=== PATIENT | male | born 1980 | race Caucasian/White ===

== ENCOUNTER 2021-06-03 20:39 | Emergency (ER) | payer MEDICAID, SELFPAY ==
[2021-06-03 20:40] VITALS: BP 143/91; PULSE 107; RESP 20; TEMP 37; O2SAT 97; BMI 33.7
--- NOTE | 2021-06-03 20:51 | XR_ITS ---
PROCEDURE INFORMATION: Exam: XR Left Hand Exam date and time: 06/03/2021 8:51 PM Age: 40 years old Clinical indication: Injury or trauma; Other: Puncture wound to left hand caused by nail; Blunt trauma (contusions or hematomas); Patient HX: Puncture wound to left hand caused by a nail. ; Additional info: Nail went into hand TECHNIQUE: Imaging protocol: XR Left hand. Views: 3 or more views. COMPARISON: No relevant prior studies available. FINDINGS: Bones/joints: Normal. Soft tissues: There is soft tissue gas in the webspace between the 1st and 2nd digits. There is no radiopaque foreign body. IMPRESSION: There is soft tissue gas in the webspace between the 1st and 2nd digits. There is no radiopaque foreign body. No underlying acute bony abnormality.
--- NOTE | 2021-06-03 21:20 | HMH.EDUTC ---
[facility] [place] Disposition Clinical Impression: Need for Tdap vaccination Puncture wound of left hand Qualifiers: Encounter type: initial encounter Foreign body presence: without foreign body Qualified Code(s): S61.432A - Puncture wound without foreign body of left hand, initial encounter Disposition: Home, Self-Care Condition on Discharge: Good Instructions: DI for Puncture Wound, Cephalexin, Tetanus, Diphtheria, Pertussis (Tdap) Vaccine Additional Instructions: Keep the wound clean and dry. Keep a dressing on it if you are going to be getting it dirty. Watch the for signs of infection, such as redness, swelling, drainage, fever. etc. take tylenol or ibuprofen for pain. Follow up with your regular doctor. GO TO THE ER FOR ANY WORSENING SYMPTOMS OR CONCERNS. Prescriptions: Mupirocin [Bactroban 2% Ointment 22gm tube] 1 applicatio TP TID 7 Days #1 gm Transmission Status: Received by [id number] cephALEXin [cephALEXin 500mg capsule] 500 mg PO Q6H 10 Days #40 cap Transmission Status: Received by [id number] Referrals: Provider,Referral, [Primary Care Provider] - Time of Disposition: 21:29 Medical Decision Making - Medical Records Medical records reviewed: No: I reviewed the patient's medical records. - Carroll Inquiry Pt receiving controlled substance: No Vital Signs: 06/03/21 20:40 06/03/21 21:38 Temperature 98.6 F 98.6 F Temperature Source Oral Pulse Rate 107 H Pulse Rate [Left Brachial] 107 H Respiratory Rate 20 20 Blood Pressure 143/91 H Blood Pressure [Left Arm] 143/91 H Blood Pressure Mean [Left Arm] 108 Blood Pressure Source [Left Arm] Automatic Cuff Blood Pressure Position [Left Arm] Sitting 02 Sat by Pulse Oximetry 97 Oxygen Delivery Method Room Air - Lab Data Lab results reviewed: Yes: I reviewed the patient's lab results. Orders (Tests/Meds): ED MEDICATIONS Discontinued Medications Generic Name Dose Route Start Last Admin Trade Name Freq PRN Reason Stop Dose Admin Ceftriaxone Sodium 1 gm 06/03/21 21:20 06/03/21 21:30 Ceftriaxone 1gm Vial IM 06/03/21 21:21 1 gm ONCE ONE Administration Lidocaine HCl 0 ml 06/03/21 21:20 06/03/21 21:30 Lidocaine 1% 5ml Pf Vial IM 06/03/21 21:21 2.1 ml ONCE ONE Administration Tetanus/Reduced Diphtheria/Acell Pertussis 0.5 ml 06/03/21 20:56 06/03/21 21:00 Tet/Diphth/Pert-Adult 0.5ml Syringe IM 06/03/21 20:57 0.5 ml .ONCE ONE Administration - Radiology Data #1 Image(s): Hand Image Reviewed: Yes I reviewed the patient's radiology image, Yes I have reviewed radiologist's interpretation Preliminary Findings: Abnormal, No Fracture Seen PROCEDURE INFORMATION: Exam: XR Left Hand Exam date and time: 06/03/2021 8:51 PM Age: 40 years old Clinical indication: Injury or trauma; Other: Puncture wound to left hand caused by nail; Blunt trauma (contusions or hematomas); Patient HX: Puncture wound to left hand caused by a nail. ; Additional info: Nail went into hand TECHNIQUE: Imaging protocol: XR Left hand. Views: 3 or more views. COMPARISON: No relevant prior studies available. FINDINGS: Bones/joints: Normal. Soft tissues: There is soft tissue gas in the webspace between the 1st and 2nd digits. There is no radiopaque foreign body. IMPRESSION: There is soft tissue gas in the webspace between the 1st and 2nd digits. There is no radiopaque foreign body. No underlying acute bony abnormality. [facility] [place] HPI - General Stated complaint: AO 06/03 1300 nail went inton hand Time Seen by Provider: 06/03/21 21:00 Mode of Arrival: Ambulatory Source of Information: Patient Limitations: No Limitations Description of Symptoms (Recalled from Triage Doc. by RN): PATIENT STATES A NAIL ATTATCHED TO A BOARD WENT INTO HIS LEFT HAND (THUMB AREA) TODAY AT WORK. UNSURE OF WHEN LAST TDAP WAS. PUNCT
[2021-06-03 21:38] VITALS: BP 143/91; PULSE 107; RESP 20; TEMP 37; O2SAT 97
== END 2021-06-03 21:46 | disposition home or self-care (01) ==
PROVIDERS: Emergency Provider Nurse Practitioner Family
DX: S61.432A Puncture wound without foreign body of left hand, initial encounter (principal); Z23 Encounter for immunization; W22.8XXA Striking against or struck by other objects, initial encounter; Y92.89 Other specified places as the place of occurrence of the external cause
CPT/HCPCS: 73130; 90471; 90715; 96372; 99202; G0463

== ENCOUNTER → 2021-06-22 20:19 | Outpatient (CLI) | payer MEDICAID, SELFPAY | PROVIDERS: Visit Provider Nurse Practitioner Family | DX: Z20.822 Contact with and (suspected) exposure to COVID-19 (principal); J02.9 Acute pharyngitis, unspecified | CPT/HCPCS: C9803; U0003; U0005 ==

== ENCOUNTER 2021-08-25 18:35 | Emergency (ER) | payer MEDICAID, SELFPAY ==
[2021-08-25 19:35] VITALS: BP 140/87; PULSE 110; RESP 27; TEMP 37.1; O2SAT 98; BMI 36.6
--- NOTE | 2021-08-25 19:59 | CT_ITS ---
PROCEDURE INFORMATION: Exam: CT Abdomen And Pelvis With Contrast Exam date and time: 08/25/2021 7:59 PM Age: 41 years old Clinical indication: Abdominal tenderness and bloating; Prior surgery; Additional info: Abd pain, distention, 2x prev hernia repair TECHNIQUE: Imaging protocol: Computed tomography of the abdomen and pelvis with contrast. Radiation optimization: All CT scans at this facility use at least one of these dose optimization techniques: automated exposure control; mA and/or kV adjustment per patient size (includes targeted exams where dose is matched to clinical indication); or iterative reconstruction. Contrast material: ISOVUE; Contrast volume: 75 ml; Contrast route: IV; COMPARISON: No relevant prior studies available. FINDINGS: Liver: Normal. No mass. Gallbladder and bile ducts: Moderately distended gallbladder with potential subtle hypodense intraluminal stones. Pancreas: Normal enhancement. No ductal dilation. Spleen: No splenomegaly. Adrenal glands: No mass. Kidneys and ureters: Punctate nonobstructing renal calcifications. No hydronephrosis. Multiple renal hypodensities measuring up to 1.9 cm which are difficult to evaluate secondary to body habitus however may be cysts. Stomach and bowel: Moderately distended loops of small bowel within the mid abdomen measuring up to 2.6 cm in close proximity to the periumbilical hernia with distal tapering. Appendix: No evidence of appendicitis. Intraperitoneal space: No free air. No significant fluid collection. Vasculature: No abdominal aortic aneurysm. Lymph nodes: No enlarged lymph nodes. Urinary bladder: No acute abnormality. Reproductive: No acute abnormality. Bones/joints: No acute fracture. Soft tissues: 3.2 x 2.5 cm fat containing midline ventral hernia with fat stranding. 5.6 x 3.5 cm fat and bowel containing periumbilical hernia. IMPRESSION: 1. Moderately distended gallbladder with potential subtle hypodense intraluminal stones. 2. Punctate nonobstructing renal calcifications without hydronephrosis. 3. Multiple renal hypodensities measuring up to 1.9 cm which are difficult to evaluate secondary to body habitus however may be cysts. 4. 3.2 x 2.5 cm fat containing midline ventral hernia with fat stranding. 5. Moderately distended loops of small bowel within the mid abdomen measuring up to 2.6 cm in close proximity to a periumbilical hernia which contains nondilated bowel with distal tapering raising concern for at least partial obstruction.
[2021-08-25 20:16] LABS: Alanine Aminotransferase 32 U/L (12-78); Albumin Level 4.6 g/dl (3.5-5.0); Albumin/Globulin Ratio 1.9 (1.1-1.8); Alkaline Phosphatase 65 U/L (38-126); Amylase 47 U/L (30-110); Anion Gap 12.8 mEq/L (5-15); Aspartate Amino Transferase 39 U/L (17-59); Bilirubin,Total 0.4 mg/dl (0.2-1.3); Blood Urea Nitrogen 16 mg/dl (9-20); Calcium 9.3 mg/dl (8.4-10.2); Carbon Dioxide 27 mmol/L (22.0-30.0); Chloride 102 mmol/L (98-107); Creatinine Clearance Estimated 225 mL/min (50-200); Estimated Glomerular Filt Rate 93 ml/min (>60); GFR (African American) 113 ML/MIN (>60); Globulin 2.4 g/dL (1.3-3.2); Glucose 96 mg/dl (74-100); Potassium 3.8 mmoL/L (3.5-5.1); Sodium 138 mmol/L (136-145)
[2021-08-25 20:21] LABS: C-Reactive Protein 9.6 mg/L (0-4)
[2021-08-25 20:25] LABS: Basophils # 0.1 K/mm3 (0-0.2); Basophils % 0.9 % (0.1-2.0); Eosinophils # 0.3 K/mm3 (0.0-0.4); Eosinophils % 2.1 % (0.1-12.0); Hematocrit 46.8 % (42.0-52.0); Hemoglobin 15.3 g/dL (14.1-18.0); Lymphocytes # 2.9 K/mm3 (0.7-4.5); Lymphocytes % 20.1 % (10-50); Mean Corpuscular HGB Conc 32.7 g/dL (31.8-35.4); Mean Corpuscular Volume 91.7 fl (80-94); Mean Platelet Volume 9.4 fl (7.4-10.4); Monocytes # 0.9 K/mm3 (0.1-1.0); Monocytes % 5.9 % (1.7-9.3); Neutrophils # 10.3 K/mm3 (1.8-7.8); Platelet Count 228 K/mm3 (142-424); White Blood Count 14.5 K/mm3 (4.8-10.8)
[2021-08-25 20:35] LABS: Procalcitonin 0.077 ng/mL (0.0-2.0)
[2021-08-25 20:56] LABS: Lipase 56 U/L (23-300)
[2021-08-25 21:15] LABS: Erythrocyte Sedimentation Rate 8 mm/hr (0-15)
[2021-08-25 21:42] LABS: Coronavirus 19, PCR Not Detected (NotDetected); Influenza A, PCR Not Detected (NotDetected); Influenza B, PCR Not Detected (NotDetected)
--- NOTE | 2021-08-25 21:46 | HMH.EDNVD ---
ED Disposition Clinical Impression: Ventral hernia without obstruction or gangrene Abdominal pain Qualifiers: Abdominal location: periumbilical Qualified Code(s): R10.33 - Periumbilical pain Disposition: Left Against Medical Advice Condition on Discharge: Good Instructions: DI for Acute Abdominal Pain Additional Instructions: see surg and pcp for follow up Referrals: Provider,Ilana, [Primary Care Provider] - Mohan Eli MD [Staff Physician] - - Critical Care Critical Care Time: No Attestation: On 08/25/21, the high probability of a clinically significant, sudden or life threatening deterioration of the following system(s) required my full and direct attention, intervention and personal management. The time I documented below is in addition to time spent performing reported procedures but includes the following listed in this critical care notation. Medical Decision Making - Medical Records Medical records reviewed: Yes: I reviewed the patient's medical records. - Carroll Inquiry Pt receiving controlled substance: No Vital Signs: 08/25/21 19:35 Temperature 98.8 F Temperature Source Oral Pulse Rate [Right] 110 H Respiratory Rate 27 H Blood Pressure [Right Arm] 140/87 Blood Pressure Mean [Right Arm] 104 02 Sat by Pulse Oximetry 98 Oxygen Delivery Method Room Air - Lab Data Lab results reviewed: Yes: I reviewed the patient's lab results. Lab Results 08/25/21 19:45: ESR 8 08/25/21 19:45: C-Reactive Protein 9.6 H, Procalcitonin 0.077 08/25/21 19:45: WBC 14.5 H, RBC 5.10, Hgb 15.3, Hct 46.8, MCV 91.7, MCH 30.0, MCHC 32.7, RDW 14.0, Plt Count 228, MPV 9.4, Neut % (Auto) 71.0, Lymph % (Auto) 20.1, [place] % (Auto) 5.9, Eos % (Auto) 2.1, Baso % (Auto) 0.9, Neut # (Auto) 10.3 H, Lymph # (Auto) 2.9, [place] # (Auto) 0.9, Eos # (Auto) 0.3, Baso # (Auto) 0.1 08/25/21 19:45: Sodium 138, Potassium 3.8, Chloride 102, Carbon Dioxide 27, Anion Gap 12.8, BUN 16, Creatinine 0.90, Estimated Creat Clear 225, Estimated GFR 93, Est GFR ( Amer) 113, Glucose 96, Calcium 9.3, Total Bilirubin 0.4, AST 39, ALT 32, Alkaline Phosphatase 65, Total Protein 7.0, Albumin 4.6, Globulin 2.4, Albumin/Globulin Ratio 1.9 H, Amylase 47 08/25/21 19:45: Lipase 56 Result diagrams: 08/25/21 19:45 08/25/21 19:45 Orders (Tests/Meds): ED MEDICATIONS Generic Name Dose Route Start Last Admin Trade Name Freq PRN Reason Stop Dose Admin Sodium Chloride 1,000 mls @ 999 mls/hr 08/25/21 20:00 08/25/21 20:13 Sod Chlor 0.9% 1000ml Bag IV 08/25/21 21:00 999 mls/hr .Q1H1M ISELA Administration Discontinued Medications Generic Name Dose Route Start Last Admin Trade Name Freq PRN Reason Stop Dose Admin Hydromorphone HCl 1 mg 08/25/21 21:33 08/25/21 21:44 Hydromorphone 2mg/Ml Syringe IV 08/25/21 21:34 1 mg ONCE ONE Administration Iopamidol 75 ml 08/25/21 20:46 08/25/21 20:47 Iopamidol-370 (76%);100ml Bottle IV 08/25/21 20:47 75 ml ONCE ONE Administration Morphine Sulfate 4 mg 08/25/21 19:59 08/25/21 20:12 Morphine 4mg/Ml Syringe IV 08/25/21 20:00 4 mg ONCE ONE Administration Ondansetron HCl 4 mg 08/25/21 19:59 08/25/21 20:12 Ondansetron 4mg/2ml Vial IV 08/25/21 20:00 4 mg ONCE ONE Administration Promethazine HCl 25 mg 08/25/21 21:33 08/25/21 21:44 Promethazine Hcl 25mg/Ml 1ml Vial IV 08/25/21 21:34 25 mg ONCE ONE Administration Sodium Chloride 10 ml 08/25/21 20:46 08/25/21 20:47 Sodium Chloride 0.9% 10ml Syr (Rad Only) IV 08/25/21 20:47 10 ml ONCE ONE Administration Sodium Chloride 25 ml 08/25/21 21:33 08/25/21 21:44 Sodium Chloride 0.9% 25ml Bag IV 08/25/21 21:34 25 ml ONCE ONE Administration ORDERS Category Date Time Status Rapid PCR Covid and Flu A/B Stat Lab 08/25/21 21:35 Received UA [Urinalysis and Microscopic] Stat Lab 08/25/21 20:02 Ordered - CT Data CT Scan: Abdomen, Pelvis Time Received: 22:[address] Reviewed: Yuliya
--- NOTE | 2021-08-25 21:48 | PC.NURSE ---
Dr. Ontiveros s/w Dr. Eli
[2021-08-25 22:09] VITALS: BP 115/75; PULSE 92; RESP 16; TEMP 36.6; O2SAT 98
== END 2021-08-25 22:16 | disposition left against medical advice (07) ==
PROVIDERS: Emergency Provider Emergency Medicine
DX: K43.6 Other and unspecified ventral hernia with obstruction, without gangrene (principal); F17.210 Nicotine dependence, cigarettes, uncomplicated
CPT/HCPCS: 74177; 80053; 82150; 83690; 84145; 85025; 85651; 86140; 96365; 96375; 99283; C9803; J2405; Q9967; U0003; U0005

== ENCOUNTER 2021-09-03 10:36 | Emergency (ER) | payer MEDICAID, SELFPAY ==
[2021-09-03 11:40] VITALS: BP 131/90; PULSE 115; RESP 28; TEMP 36.7; O2SAT 98; BMI 36.0
[2021-09-03 12:00] LABS: UTC Influenza A Antigen Negative (Negative)
--- NOTE | 2021-09-03 12:00 | HMH.EDUTC ---
[facility] Disposition Clinical Impression: Sinusitis Qualifiers: Sinusitis location: unspecified location Chronicity: unspecified Qualified Code(s): J32.9 - Chronic sinusitis, unspecified Disposition: Home, Self-Care Condition on Discharge: Good Additional Instructions: *Monitor Temp, Over the counter Motrin or Tylenol as directed/as needed Tylenol every 4 hours and Motrin every 6 hours (as long as your family doctor has told you that you can take it) for fever or pain. and straight to ER if unable to lower temp less than 101.0 after medication given *Warm salt water gargles may help to soothe the throat *Throat Lozenges *Warm fluids like tea with honey may help to soothe the throat *Sleep elevated *Humidifier/Vaporizer *Flonase 2 sprays in each nostril daily but be aware that it may take 2-3 days before you notice improvement *Bromfed may cause drowsiness. Know how it effects you (your child) before driving, caring for small child, or sending your child to school. Not other antihistamines/allergy medications while taking bromfed Your throat swab was sent for culture. Those results are typically sent to your primary care. Be sure to follow up in 2-3 days with your family doctor/primary care physician if no improvement so they can review those result and treat if necessary. If you don?t have a primary care doctor, I recommend you get one but in the mean time, you will have to return to a walk in clinic Follow up IMMEDIATELY for new or worsening symptoms or no Noticeable improvement over the next 48-72 hours. 911 for difficulty breathing or swallowing You were tested for today for COVID19 your test result should be back in the next 48-72 hours, you may check your results on the [facility] My health portal If you are positive someone from the Hospital will be calling you Make sure to drink plenty of water and gatoraid and take vitamin C, D and zinc Prescriptions: Doxycycline Monohydrate [Doxycycline [place] 100mg Tab] 100 mg PO BID 10 Days #20 tab Transmission Status: Received by [email or web address] #[id number] methylPREDNISolone [Medrol 4mg tab] 4 mg PO DIRECTED #21 tab Transmission Status: Received by [email or web address] #[id number] Promethazine/Dextromethorphan [Promethazine-Dm Syrup] 2.5 - 5 ml PO Q6H PRN #120 ml PRN Reason: Cough Transmission Status: Received by [email or web address] #[id number] Referrals: Provider,Referral, [Primary Care Provider] - Forms: Work/School Release Time of Disposition: 12:25 Medical Decision Making - Carroll Inquiry Pt receiving controlled substance: No Carroll was queried for this patient: No Vital Signs: 09/03/21 11:40 09/03/21 12:08 Temperature 98.1 F 98.1 F Temperature Source Oral Pulse Rate 115 H Pulse Rate [Left Brachial] 115 H Respiratory Rate 28 H 24 Blood Pressure 131/90 Blood Pressure [Left Arm] 131/90 Blood Pressure Mean [Left Arm] 103 Blood Pressure Source [Left Arm] Automatic Cuff Blood Pressure Position [Left Arm] Sitting 02 Sat by Pulse Oximetry 98 Oxygen Delivery Method Room Air - Lab Data Lab results reviewed: Yes: I reviewed the patient's lab results. Lab Results 09/03/21 12:00: Influenza Type A Ag Negative, Influenza Type B Ag Negative [facility] HPI - General Stated complaint: cold sweats, head congestion Time Seen by Provider: 09/03/21 12:00 Mode of Arrival: Ambulatory Source of Information: Patient Limitations: No Limitations Description of Symptoms (Recalled from Triage Doc. by RN): PATIENT C/O HEAD AND CHEST CONGESTION, CHILLS, SWEATS, SORE THROAT, SINUS PRESSURE, SOA (D/T NASAL CONGESTION), FATIGUE AND BODY ACHES SINCE TUESDAY HEENT Symptoms (Recalled from RN notes): Yes Resp Symptoms (Recalled from RN notes): No Skin Symptoms (Recalled from RN notes): No MS Symptoms (Recalled from RN notes): No Functional Status (Recalled from RN notes): WNL - History of Present Illness Provider Complaint: Patient states that he hasnt felt well since
[2021-09-03 12:01] LABS: UTC Influenza B Antigen Negative (Negative)
[2021-09-03 12:08] VITALS: BP 131/90; PULSE 115; RESP 24; TEMP 36.7; O2SAT 98
== END 2021-09-03 12:36 | disposition home or self-care (01) ==
PROVIDERS: Emergency Provider Nurse Practitioner
DX: J32.9 Chronic sinusitis, unspecified (principal); F17.210 Nicotine dependence, cigarettes, uncomplicated; E11.9 Type 2 diabetes mellitus without complications; Z20.822 Contact with and (suspected) exposure to COVID-19
CPT/HCPCS: 81003; 87804; 99202; C9803; G0463; U0003; U0005

== ENCOUNTER 2021-09-25 17:46 | Emergency (ER) | payer MEDICAID, SELFPAY ==
[2021-09-25 17:50] VITALS: BP 150/94; PULSE 84; RESP 22; TEMP 36.7; O2SAT 97; BMI 35.4
[2021-09-25 18:16] LABS: UTC Influenza A Antigen Negative (Negative); UTC Influenza B Antigen Negative (Negative); UTC Strep Screen (Rapid) Negative (Negative)
--- NOTE | 2021-09-25 18:18 | HMH.EDUTC ---
[facility] [place] Disposition Clinical Impression: URI (upper respiratory infection) Qualifiers: URI type: unspecified URI Qualified Code(s): J06.9 - Acute upper respiratory infection, unspecified Disposition: Home, Self-Care Condition on Discharge: Good Instructions: Sore Throat, Cough, DI for Sinusitis Additional Instructions: ? Start antibiotic today. Be sure to complete entire prescription even if feeling better ? Monitor temp. Tylenol every 4 hours as needed and / or ibuprofen every 6 hours as needed ( As long as your primary care physician has told you that it ok to take both. For fever/aches/pains ER if no less than 101 despite Tylenol or Motrin ? Humidifier/vaporizer or hot steamy shower ? Inhaler every 4-6 hours as needed like we discussed. If unsure how to use it, ask pharmacist to demonstrate how. Should help open airways and improve cough, wheezing, and shortness of breath ? Mucinex for your congestion. Be sure to drink lots of water. *Start steroid today. Helps with inflammation therefore, cough and wheezing. Follow directions on the package. Reviewed side effects. Patient reports taking them before. Follow up IMMEDIATELY for new or worsening of symptoms OR no noticeable improvement over the next 48-72 hours. 911 immediately for any life threatening symptoms such as chest pain or difficulty breathing Prescriptions: guaiFENesin [Mucinex 600mg tablet] 600 mg PO Q12HP PRN #20 tab PRN Reason: Congestion Transmission Status: Received by [facility] # methylPREDNISolone [Medrol 4mg tab] 4 mg PO DIRECTED #21 tab Transmission Status: Received by [facility] # Azithromycin [Z-Alan 250mg Tab] 250 mg PO DIRECTED #6 tab Transmission Status: Received by [facility] # Referrals: Provider,Referral, [Primary Care Provider] - As needed Forms: Work/School Release Time of Disposition: 18:26 Medical Decision Making - Carroll Inquiry Pt receiving controlled substance: No Carroll was queried for this patient: No Vital Signs: 09/25/21 17:50 Temperature 98.1 F Temperature Source Oral Pulse Rate [Left Brachial] 84 Respiratory Rate 22 Blood Pressure [Left Arm] 150/94 H Blood Pressure Mean [Left Arm] 112 Blood Pressure Source [Left Arm] Automatic Cuff Blood Pressure Position [Left Arm] Sitting 02 Sat by Pulse Oximetry 97 Oxygen Delivery Method Room Air - Lab Data Lab results reviewed: Yes: I reviewed the patient's lab results. Lab Results 09/25/21 18:04: Influenza Type A Ag Negative, Influenza Type B Ag Negative 09/25/21 18:04: Strep Scn Rapid Clinic Negative Orders (Tests/Meds): ORDERS Category Date Time Status Covid-19 Nasal PCR ([facility]) Routine Lab 09/25/21 17:58 Received Strep Screen Confirmation Stat Micro 09/25/21 18:04 Received [facility] UTC HPI - General Stated complaint: sore throat Time Seen by Provider: 09/25/21 18:20 Mode of Arrival: Ambulatory Source of Information: Patient Limitations: No Limitations Description of Symptoms (Recalled from Triage Doc. by RN): PATIENT C/O SORE THROAT, CONGESTION, EAR PAIN, COUGH AND BODY ACHES SINCE YESTERDAY HEENT Symptoms (Recalled from RN notes): Yes Resp Symptoms (Recalled from RN notes): Yes Skin Symptoms (Recalled from RN notes): No MS Symptoms (Recalled from RN notes): No Functional Status (Recalled from RN notes): WNL - History of Present Illness Provider Complaint: Patient states that he started feeling bad yesterday State that he has been having sore throat, sinus pain and pressure, cough and chest congestion along with body aches and chills State that today he was feeling worse so he came in to get checked out - Related Data Previous Rx's Medication Instructions Recorded Azithromycin [Z-Alan 250mg Tab] 250 mg PO DIRECTED #6 tab 09/25/21 guaiFENesin [Mucinex 600mg tablet] 600 mg PO Q12HP PRN #20 tab 09/25/21 methylPREDNISolone [Medrol 4mg 4 mg PO DIRECTED #21 tab 09/25/21 tab] Aller
[2021-09-25 18:29] VITALS: BP 150/94; PULSE 84; RESP 22; TEMP 36.7; O2SAT 97
== END 2021-09-25 18:34 | disposition home or self-care (01) ==
PROVIDERS: Emergency Provider Nurse Practitioner
DX: J06.9 Acute upper respiratory infection, unspecified (principal); J02.9 Acute pharyngitis, unspecified; E11.9 Type 2 diabetes mellitus without complications; Z20.822 Contact with and (suspected) exposure to COVID-19
CPT/HCPCS: 87804; 87880; 99203; C9803; G0463; U0003; U0005

== ENCOUNTER 2021-10-05 10:58 | Emergency (ER) | payer MEDICAID, SELFPAY ==
--- NOTE | 2021-10-05 11:34 | XR_ITS ---
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 The bony alignment is normal. There is yixy-ov-rvoiyifm degenerative change. There is no evidence of joint effusion. No localized soft tissue abnormality is seen. IMPRESSION: Mild to moderate degenerative change. No acute osseous abnormality. Reviewed, Interpreted and Dictated by Mohan Alvarez III, MD Transcribed by DAYANARA Maria Authenticated by Mohan Alvarez III, MD on 10/05/2021 12:48:[address] [facility]
[2021-10-05 11:52] VITALS: BP 145/87; PULSE 109; RESP 20; TEMP 36.9; O2SAT 98; BMI 35.4
--- NOTE | 2021-10-05 12:13 | HMH.EDUTC ---
[facility] [place] Disposition Clinical Impression: Knee sprain Qualifiers: Encounter type: initial encounter Involved ligament of knee: unspecified ligament Laterality: left Qualified Code(s): S83.92XA - Sprain of unspecified site of left knee, initial encounter Disposition: Home, Self-Care Condition on Discharge: Good Instructions: Knee Sprain, How to Use an Elastic Bandage-Knee Sprain, DI for Knee Sprain, How To Perform RICE (Rest, Ice, Compress, Elevate) Additional Instructions: *weight bearing as tolerated *RICE, Rest the extremity, Ice 15-20 minutes 3-4 times daily, Compress- wear the nba wrap as discussed as much as possible to help reduce swelling and pain, Elevate the extremity when at rest *Nba wrap is for support and help control swelling, use it except in the shower. Be sure that is not to tight but not to loose either *Elevate when resting *Etodolac every 8 hours as needed for pain an inflammation. If need something more can take Tylenol in between doses of Etodolac to help Do not take any Ibuprofen with Etodolac Immediately follow up with your family doctor for new or worsening of symptoms, or no noticeable improvement over the next 3-5 days Return if needed Straight to ER if any life threatening symptoms Prescriptions: Etodolac 200 mg PO Q8HP PRN #20 cap PRN Reason: Moderate Pain Transmission Status: Received by [facility] #[id number] Referrals: Provider,Referral, [Primary Care Provider] - As needed Ahsan Hoskins MD [Staff Physician] - As needed Forms: Work/School Release Time of Disposition: 13:04 Medical Decision Making - Carroll Inquiry Pt receiving controlled substance: No Carroll was queried for this patient: No Vital Signs: 10/05/21 11:52 10/05/21 13:09 Temperature 98.4 F 98.4 F Temperature Source Oral Oral Pulse Rate 109 H Pulse Rate [Right Radial] 109 H Respiratory Rate 20 20 Blood Pressure 145/87 H Blood Pressure [Right Arm] 145/87 H Blood Pressure Mean [Right Arm] 106 Blood Pressure Source Automatic Cuff Blood Pressure Source [Right Arm] Automatic Cuff Blood Pressure Position Sitting Blood Pressure Position [Right Arm] Sitting 02 Sat by Pulse Oximetry 98 Oxygen Delivery Method Room Air Room Air Orders (Tests/Meds): ED MEDICATIONS Discontinued Medications Generic Name Dose Route Start Last Admin Trade Name Freq PRN Reason Stop Dose Admin Ketorolac Tromethamine 60 mg 10/05/21 12:22 10/05/21 12:40 Ketorolac 60mg/2ml Vial IM 10/05/21 12:23 60 mg ONCE ONE Administration - Radiology Data #1 Image(s): Knee Image Reviewed: Yes I have reviewed radiologist's interpretation IMPRESSION: Mild to moderate degenerative change. No acute osseous abnormality. [facility] [place] HPI - General Stated complaint: WC 10/02 lt knee pain Time Seen by Provider: 10/05/21 12:13 Mode of Arrival: Ambulatory Source of Information: Patient Limitations: No Limitations Description of Symptoms (Recalled from Triage Doc. by RN): Pt stated that last wk he was at work and is left knee got stuck between two structures and it twisted. He states that his pain is going from his knee and radiating from knee to his foot, and knee to his upper leg. He stated that it was swollen, and has since went down. It hurts to bare weight. HEENT Symptoms (Recalled from RN notes): No Resp Symptoms (Recalled from RN notes): No Skin Symptoms (Recalled from RN notes): No MS Symptoms (Recalled from RN notes): Yes (hurt left knee) Functional Status (Recalled from RN notes): n/a - History of Present Illness Provider Complaint: Jodinet states that he was at work on when his left knee got caught between cart and rack and twisted his knee States that ever since he has been having pain in his left knee when he walks or puts weight on it States that over the weekend he had some swelling and has been taking motrin and tylenol but not helped much States that today he was still hurting so he came in to ge
[2021-10-05 13:09] VITALS: BP 145/87; PULSE 109; RESP 20; TEMP 36.9; O2SAT 98
--- NOTE | 2021-10-05 15:35 | PC.NURSE ---
Called in naproxen 500 BID qty 20
== END 2021-10-05 13:09 | disposition home or self-care (01) ==
PROVIDERS: Emergency Provider Nurse Practitioner
DX: S83.92XA Sprain of unspecified site of left knee, initial encounter (principal); X50.1XXA Overexertion from prolonged static or awkward postures, initial encounter; Y92.69 Other specified industrial and construction area as the place of occurrence of the external cause; Y99.0 Civilian activity done for income or pay
CPT/HCPCS: 73562; 96372; 99213; G0463

== ENCOUNTER 2021-10-28 21:24 | Inpatient (IN) | payer MEDICAID, SELFPAY ==
[2021-10-28 21:25] VITALS: BP 135/91; PULSE 102; RESP 18; TEMP 37.2; O2SAT 96; BMI 36.0
--- NOTE | 2021-10-28 21:51 | HMH.EDGENADL ---
ED Disposition Clinical Impression: Periumbilical hernia, Small bowel obstruction Disposition: Admitted As Inpatient Condition on Discharge: Serious Referrals: Provider,Referral, [Primary Care Provider] - Time of Disposition: 00:00 - Critical Care Critical Care Time: No Attestation: On 10/28/21, the high probability of a clinically significant, sudden or life threatening deterioration of the following system(s) required my full and direct attention, intervention and personal management. The time I documented below is in addition to time spent performing reported procedures but includes the following listed in this critical care notation. Medical Decision Making - Medical Records Medical records reviewed: Yes: I reviewed the patient's medical records. - [place] Inquiry Pt receiving controlled substance: No Vital Signs: 10/28/21 21:25 Temperature 99.0 F Temperature Source Oral Pulse Rate [Right Radial] 102 H Respiratory Rate 18 Blood Pressure [Right Arm] 135/91 H Blood Pressure Mean [Right Arm] 105 Blood Pressure Source [Right Arm] Automatic Cuff Blood Pressure Position [Right Arm] Sitting 02 Sat by Pulse Oximetry 96 Oxygen Delivery Method Room Air - Lab Data Lab Results 10/28/21 21:45: Urine Color Dark yellow, Urine Appearance Clear, Urine pH 6.0, Ur Specific [place] 1.025, Urine Protein Trace, Urine Glucose (UA) Negative, Urine Ketones Negative, Urine Blood Negative, Urine Nitrate Negative, Urine Bilirubin Negative, Urine Urobilinogen 2.0, Ur Leukocyte Esterase 1+ A, Urine WBC 5-10, Urine Bacteria 1+, Urine Mucus 1+ 10/28/21 22:11: WBC 9.8, RBC 5.26, Hgb 16.1, Hct 47.5, MCV 90.3, MCH 30.6, MCHC 33.9, RDW 14.2, Plt Count 257, MPV 8.5, Neut % (Auto) 62.7, Lymph % (Auto) 25.5, [place] % (Auto) 6.8, Eos % (Auto) 3.7, Baso % (Auto) 1.3, Neut # (Auto) 6.1, Lymph # (Auto) 2.5, [place] # (Auto) 0.7, Eos # (Auto) 0.4, Baso # (Auto) 0.1 10/28/21 22:11: Sodium 139, Potassium 3.8, Chloride 102, Carbon Dioxide 30, Anion Gap 10.8, BUN 14, Creatinine 1.00, Estimated Creat Clear 200, Estimated GFR 82, Est GFR ( Amer) 100, Glucose 102 H, Calcium 8.4, Total Bilirubin 0.7, AST 63 H, ALT 91 H, Alkaline Phosphatase 59, Total Protein 6.8, Albumin 4.2, Globulin 2.6, Albumin/Globulin Ratio 1.6, Lipase 40 10/28/21 22:11: Lactate 1.1 Result diagrams: 10/28/21 22:11 10/28/21 22:11 Orders (Tests/Meds): ED MEDICATIONS Discontinued Medications Generic Name Dose Route Start Last Admin Trade Name Freq PRN Reason Stop Dose Admin Iopamidol 75 ml 10/28/21 22:17 10/28/21 22:17 Iopamidol-370 (76%);100ml Bottle IV 10/28/21 22:18 75 ml ONCE ONE Administration Morphine Sulfate 4 mg 10/28/21 21:57 10/28/21 22:12 Morphine 4mg/Ml Syringe IV 10/28/21 21:58 4 mg ONCE ONE Administration Ondansetron HCl 4 mg 10/28/21 21:57 10/28/21 22:12 Ondansetron 4mg/2ml Vial IV 10/28/21 21:58 4 mg ONCE ONE Administration Sodium Chloride 10 ml 10/28/21 22:17 10/28/21 22:17 Sodium Chloride 0.9% 10ml Syr (Rad Only) IV 10/28/21 22:18 10 ml ONCE ONE Administration ORDERS Category Date Time Status Rapid PCR Covid and Flu A/B Stat Lab 10/28/21 23:55 Ordered Urine Culture Stat Micro 10/28/21 21:45 Received - CT Data CT Scan: Abdomen Time Received: 23:[address] Reviewed: Yes: I have reviewed the patient's CT results, I have viewed the radiologist's interpretation Preliminary Findings: Abnormal Findings Narrative: IMPRESSION: 1. Umbilical hernia containing herniated loop of small -- bowel, with bowel dilatation and transition point at the hernia concerning for small bowel obstruction. 2. There is a 10 cm segment of small bowel just proximal to the hernia which demonstrates moderate bowel wall thickening and adjacent mesenteric stranding. This might represent reactive changes from obstruction or possibly enteritis, however cannot exclude vascular strangulation and ischemic parviz
--- NOTE | 2021-10-28 21:57 | CT_ITS ---
PROCEDURE INFORMATION: Exam: CT Abdomen And Pelvis With Contrast Exam date and time: 10/28/2021 10:10 PM Age: 41 years old Clinical indication: Pain and condition or disease; Hernia; Abdominal pain; Additional info: Abdominal pain, hernias TECHNIQUE: Imaging protocol: Computed tomography of the abdomen and pelvis with contrast. Total images: 391 Radiation optimization: All CT scans at this facility use at least one of these dose optimization techniques: automated exposure control; mA and/or kV adjustment per patient size (includes targeted exams where dose is matched to clinical indication); or iterative reconstruction. Contrast material: ISOVUE; Contrast volume: 75 ml; Contrast route: IV; COMPARISON: CT ABDOMEN PELVIS W CON 08/25/2021 8:49 PM FINDINGS: Tubes, catheters and devices: Loop recorder noted in the anterior subcutaneous fat in the left lower chest. Lungs: Mild atelectasis in the lung bases. Heart: Heart size normal. Mediastinal space: The visualized distal esophagus is largely contracted without gross abnormality. Liver: Moderate fatty infiltration of the liver. Hepatomegaly measuring 23 cm craniocaudal. Normal contour. No mass lesions. No intrahepatic biliary ductal dilatation. Gallbladder and bile ducts: Normal. No calcified stones. No ductal dilation. Pancreas: Normal. No inflammatory changes or ductal dilation. Spleen: Splenomegaly measuring 15 cm maximum dimension. Adrenal glands: Normal. No adrenal mass. Kidneys and ureters: 2.1 cm rounded indeterminate lesion in the anterior mid pole cortex of the right kidney measuring 34 Hounsfield units. There are few simple cysts in the left kidney which do not require further assessment. There is an indeterminate 13 mm lesion in the medial upper pole cortex of the left kidney measuring 31 Hounsfield units. Body habitus may be contributing to altered density values. Nonemergent assessment with multiphasic pre and postcontrast MR of the kidneys recommended. 1.5 mm nonobstructive right renal stone. 4 mm nonobstructive left renal stone. No ureteral stones are identified. Stomach and bowel: The stomach is largely contracted without gross abnormality. Mild diverticulosis involving the distal colon without evidence of acute diverticulitis. Appendix: Prior appendectomy. Intraperitoneal space: No free fluid or air. Vasculature: Mild atherosclerotic aortoiliac calcification without aneurysm. Lymph nodes: No adenopathy. Urinary bladder: Unremarkable as visualized. Calcification at the base of the bladder is felt to be related to prostate calcification, unchanged. Reproductive: Mild prostate enlargement with moderate prostate calcification. Bones/joints: No acute osseous abnormalities. Chronic mild superior endplate compression deformity T8 unchanged. Soft tissues: Dilated small bowel loops in the mid and lower abdomen measuring up to 5.1 cm diameter, transitioning to nondilated small bowel at the level of the patient's periumbilical hernia which contains herniated loop of small bowel. This is consistent with small bowel obstruction. There is moderate bowel wall thickening and adjacent stranding involving the segment just proximal to the hernia which might represent reactive thickening or enteritis, although cannot exclude changes of strangulation. Multifocal anterior midline supraumbilical fatty hernias are again noted with chronic local fatty stranding but no bowel herniation with the majority. The largest in the periumbilical region does have a herniated loop of small bowel as described above. IMPRESSION: 1. Umbilical hernia containing herniated loop of small bowel, with bowel
[2021-10-28 22:00] VITALS: BP 128/80; PULSE 98; O2SAT 95
[2021-10-28 22:19] LABS: Microscopic, Urine URINE MICROSCOPIC (MICROSCOPIC)
[2021-10-28 22:22] LABS: Basophils # 0.1 K/mm3 (0-0.2); Basophils % 1.3 % (0.1-2.0); Eosinophils # 0.4 K/mm3 (0.0-0.4); Eosinophils % 3.7 % (0.1-12.0); Hematocrit 47.5 % (42.0-52.0); Hemoglobin 16.1 g/dL (14.1-18.0); Lymphocytes # 2.5 K/mm3 (0.7-4.5); Lymphocytes % 25.5 % (10-50); Mean Corpuscular HGB Conc 33.9 g/dL (31.8-35.4); Mean Corpuscular Hemoglobin 30.6 pg (27.0-31.2); Mean Corpuscular Volume 90.3 fl (80-94); Mean Platelet Volume 8.5 fl (7.4-10.4); Monocytes # 0.7 K/mm3 (0.1-1.0); Monocytes % 6.8 % (1.7-9.3); Neutrophils # 6.1 K/mm3 (1.8-7.8); Neutrophils % 62.7 % (37.0-80.0); Platelet Count 257 K/mm3 (142-424); Red Blood Count 5.26 M/mm3 (4.60-6.20); Red Cell Distribution Width 14.2 % (11.5-17.5); White Blood Count 9.8 K/mm3 (4.8-10.8)
[2021-10-28 22:27] LABS: Appearance,Urine CLEAR (Clear); Bilirubin,Urine Negative (Negative); Blood, Urine Negative (Negative); Glucose,Urine (UA) Negative (Negative); Ketones,Urine Negative (Negative); Leukocyte Esterase,Urine 1+ (Negative); Nitrate,Urine Negative (Negative); Protein,Urine TRACE (Negative); Specific Gravity, Urine 1.025 (1.005-1.030)
[2021-10-28 22:28] LABS: Color,Urine Dark Yellow (Yellow)
[2021-10-28 22:40] LABS: Bacteria,Urine 1+ /lpf; Mucus,Urine 1+ /lpf
[2021-10-28 23:00] VITALS: BP 137/86; PULSE 98; O2SAT 94
[2021-10-28 23:17] LABS: Lactic Acid 1.1 mmol/L (0.7-2.1)
[2021-10-28 23:18] LABS: Alanine Aminotransferase 91 U/L (12-78); Albumin Level 4.2 g/dl (3.5-5.0); Albumin/Globulin Ratio 1.6 (1.1-1.8); Alkaline Phosphatase 59 U/L (38-126); Anion Gap 10.8 mEq/L (5-15); Aspartate Amino Transferase 63 U/L (17-59); Bilirubin,Total 0.7 mg/dl (0.2-1.3); Blood Urea Nitrogen 14 mg/dl (9-20); Calcium 8.4 mg/dl (8.4-10.2); Carbon Dioxide 30 mmol/L (22.0-30.0); Chloride 102 mmol/L (98-107); Creatinine Clearance Estimated 200 mL/min (50-200); Estimated Glomerular Filt Rate 82 ml/min (>60); GFR (African American) 100 ML/MIN (>60); Globulin 2.6 g/dL (1.3-3.2); Glucose 102 mg/dl (74-100); Lipase 40 U/L (23-300); Potassium 3.8 mmoL/L (3.5-5.1); Sodium 139 mmol/L (136-145); Total Protein,Serum 6.8 g/dl (6.3-8.2)
--- NOTE | 2021-10-28 23:49 | PC.NURSE ---
speaking with ROSANNE at this time.
--- NOTE | 2021-10-28 23:50 | PC.NURSE ---
MD speaking with expedition supervisor surgeon at this time.
--- NOTE | 2021-10-28 23:55 | PC.NURSE ---
Jenaro notified that Dr. Hernandez will be taking pt to OR, call OR team
[2021-10-29] VITALS (24 sets, daily range): BP systolic 104–141; BP diastolic 67–87; PULSE 72–104; RESP 13–20; TEMP 36.3–43; O2SAT 90–96; BMI 35.9
--- NOTE | 2021-10-29 00:02 | PC.NURSE ---
pt placed in a gown and Surgery packet being prepared
[2021-10-29 00:06] LABS: Coronavirus 19, PCR Not Detected (NotDetected); Influenza A, PCR Not Detected (NotDetected); Influenza B, PCR Not Detected (NotDetected)
--- NOTE | 2021-10-29 00:20 | PC.NURSE ---
at bedside talking to pt about sx.
--- NOTE | 2021-10-29 00:32 | HMH.GSHP ---
HPI HPI: This is a 41-year-old gentleman who presented to the emergency department with increasing abdominal pain. My physical exam findings and radiographic evidence consistent with incarcerated ventral hernia and the surgical service was consulted for evaluation and management. Referring emergency department evaluation: 41-year-old male presenting urgency department abdominal pain. Pain started 4 days ago. Is described as constant and cramping. Located across the lower abdomen. Starts at the umbilicus and extends to the lower portion of the abdomen, near the hip bone. Has been constant since onset. Associated nausea and vomiting. Unable to eat and drink. Had a small bowel movement yesterday. Usually has at least 2 bowel movements daily. His stool was thin and liquidy. No blood or mucus. He has history of prior abdominal surgeries. Had 2 ventral hernia repairs in [place]. Does not have a surgeon locally yet. No medications prior to arrival. No fevers, chills, cough, shortness of breath, chest pain, dysuria, hematuria. [facility] History Medical History: Reports:: Diabetes Mellitus Type 2 *Have you ever received a pneumonia vaccine?: No *Have you received a flu vaccine this season?: No Fractures: Yes - *Social History Smoking Status: Current every day smoker Tobacco Type: cigarettes # Packs/Day (cigarettes): 1 Alcohol Intake: never *Occupational Status:: other *Travel in the last 8 weeks: None Family Hx:: Non-contributory Review of Systems - Constitutional Denies chills - Eyes Denies change in vision - ENT Denies difficulty swallowing - *Cardiovascular Denies chest pain - *Respiratory Denies cough - *Gastrointestinal Reports abdominal pain - *Genitourinary Denies difficulty urinating - *Musculoskeletal Denies deformity - Integumentary/Breasts Denies new lesions - *Neurologic Denies dizziness, Denies headache(s), Denies weakness - Psychiatric Denies anxiety - Endocrine Denies cold intolerance - Hematologic/Lymphatic Denies easy bleeding - Allergic/Immunologic Denies GI upset with certain foods Meds Home Medications Medication Instructions Recorded Confirmed Type Albuterol Sulfate [Proair Hfa] 1 inh PO Q4-6H PRN 10/05/21 10/05/21 History Etodolac 200 mg PO Q8HP PRN #20 cap 10/05/21 Rx Allergies Allergy/AdvReac Type Severity Reaction Status Date / Time No Known Allergies Allergy Verified 10/05/21 11:59 Exam Vital signs and Labs for Last 24 Hours: Temp Pulse Resp BP Pulse Ox 99.0 F 102 H 18 135/91 H 96 10/28/21 21:25 10/28/21 21:25 10/28/21 21:25 10/28/21 21:25 10/28/21 21:25 Laboratory Results - last 24 hr 10/28/21 21:45: Urine Color Dark yellow, Urine Appearance Clear, Urine pH 6.0, Ur Specific [place] 1.025, Urine Protein Trace, Urine Glucose (UA) Negative, Urine Ketones Negative, Urine Blood Negative, Urine Nitrate Negative, Urine Bilirubin Negative, Urine Urobilinogen 2.0, Ur Leukocyte Esterase 1+ A, Urine WBC 5-10, Urine Bacteria 1+, Urine Mucus 1+ 10/28/21 22:11: WBC 9.8, RBC 5.26, Hgb 16.1, Hct 47.5, MCV 90.3, MCH 30.6, MCHC 33.9, RDW 14.2, Plt Count 257, MPV 8.5, Neut % (Auto) 62.7, Lymph % (Auto) 25.5, [place] % (Auto) 6.8, Eos % (Auto) 3.7, Baso % (Auto) 1.3, Neut # (Auto) 6.1, Lymph # (Auto) 2.5, [place] # (Auto) 0.7, Eos # (Auto) 0.4, Baso # (Auto) 0.1 10/28/21 22:11: Sodium 139, Potassium 3.8, Chloride 102, Carbon Dioxide 30, Anion Gap 10.8, BUN 14, Creatinine 1.00, Estimated Creat Clear 200, Estimated GFR 82, Est GFR ( Amer) 100, Glucose 102 H, Calcium 8.4, Total Bilirubin 0.7, AST 63 H, ALT 91 H, Alkaline Phosphatase 59, Total Protein 6.8, Albumin 4.2, Globulin 2.6, Albumin/Globulin Ratio 1.6, Lipase 40 10/28/21 22:11: Lactate 1.1 10/28/21 23:55: SARS-CoV-2 (PCR) Not detected, Influenza A Untype (PCR) Not detected, Influenza Type B (PCR) Not detected I & O for Last 24 hours: Intake & Output 0310/27/21 10/28/21
--- NOTE | 2021-10-29 00:34 | PC.NURSE ---
Jake Feeback at bedside for anesthesia
--- NOTE | 2021-10-29 00:45 | PC.NURSE ---
Pt headed to sx at this time.
--- NOTE | 2021-10-29 01:15 | P.PN_ITS ---
[facility] Anesthesia Checklist - Patient Identification Patient Identification: Arm Band - Structural Data Admitted From: Emergency Dept Planned Operative Procedure/s: Exploratory Laparotomy Consent for Planned Operative Procedure(s) Verified: Yes Verified Documents: Surgical Consent, History and Physical - NPO Status Verified Time NPO: 19:00 (sip of water. Pt says he has not eaten in 2 days and cannot tolerate more than sip of water) - Additional verifications Anesthesia Reactions: No - Airway Assessment C-Spine Mobility Assessed: Yes (mp2) TMJ Mobility Assessed: Yes Dentition: Good Dentition - Neurological Assessment Level of Consciousness: Awake, Alert - Anesthesia Plan Anesthesia Risk discussed: Yes Anesthesia Plan: Verified ASA Class: III (e) Anesthesia Type: General [facility] History I have reviewed the patient's past medical history: Yes Medical History: Reports:: Atrial Fibrillation (hx. S/p ablation x2), Chronic Obstructive Pulmonary Disease (COPD), Diabetes Mellitus Type 2 *Have you ever received a pneumonia vaccine?: No *Have you received a flu vaccine this season?: No Anesthesia experience/problems:: nac Other Surgeries: Yes: Appendectomy, Hernia Repair, Other Fractures: Yes - *Social History Smoking Status: Current every day smoker Tobacco Type: cigarettes # Packs/Day (cigarettes): 1 Alcohol Intake: never Substance Use Type: denies use *Occupational Status:: other *Travel in the last 8 weeks: None Family Hx:: Non-contributory
--- NOTE | 2021-10-29 01:24 | PC.NURSE ---
Report called to June at this time
--- NOTE | 2021-10-29 02:38 | HMH.OPNOTE ---
Date of procedure: 10/29/21 Pre-op Diagnosis:: Incarcerated ventral hernia (recurrent) with small bowel obstruction Post-op Diagnosis:: Same Procedure performed:: Exploratory laparotomy with extensive lysis of adhesions Primary ventral hernia repair Surgeon:: Seymour Hernandez MD Bean Snipper(s):: Diego SERVICES EXECUTIVE:: Moo Sargent Anesthesia: GETA Estimated blood loss (mL): 25 Operative findings:: Complex recurrent hernia at site of prior mesh repair along mid abdomen Multiple additional Portuguese cheese defects throughout mid anterior abdomen (surrounding prior mesh) Incarcerated loop of mid small bowel (densely adhered to prior hernia mesh) No obvious rent or ischemia of small bowel Operative note:: After informed consent was obtained the patient was taken to the operating room and placed in the supine position. General anesthesia was induced and his abdomen was prepped and draped in a sterile fashion. His prior midline incision was reopened sharply with scalpel. A combination of electrocautery and blunt dissection was utilized to transect through the deep subcutaneous tissue. A mass that contained incarcerated small bowel and displaced mesh from prior repair was noted. Careful dissection was utilized to transect the mesh and small bowel free from surrounding tissue. Transection through the central portion of the mesh was also required along the superior margin of the defect. Mesh was densely adhered to small bowel. The mesh was carefully from small bowel utilizing Metzenbaum scissors. Small serosal rents were imbricated with interrupted 3-0 Nurolon. No through and through rent noted. No areas of ischemia noted. The small bowel was evaluated from the ligament of Treitz to 20 cm distal to the area of concern. No obvious injuries noted. Multiple complex adhesions of the small bowel were noted; however, none of these appeared to be creating obstruction and the decision was made to forego further dissection. The fascia/retained mesh was reapproximated utilizing #2 Novafil. The wound was irrigated and skin was stapled. Dressings were applied and the patient was transferred to recovery in stable condition. Condition: stable Disposition: PACU Specimens:: Prior hernia mesh (partial) Complications:: No immediate
--- NOTE | 2021-10-29 03:24 | PC.NURSE ---
patient up to floor via stretcher from surgery @ this time.
--- NOTE | 2021-10-29 03:32 | P.PN_ITS ---
[facility] Anesthesia Record Part I Intake, IV Amount: 1,900 Estimated blood loss (mL): 25 Urine output (mL): 0 Blood Pressure: 125/78 SaO2: 91 Pulse Rate: 100 Respiratory Rate: 16 Temperature: 97.4 F Patient is:: Drowsy, Stable Stable to PACU at:: 02:45
--- NOTE | 2021-10-29 03:41 | PC.NURSE ---
304-performed incentive spirometry with patient to assist with deep breathing, ALLISON Rosas at bedside, pt's sats 91-93% on 3L/NC, ALLISON Rosas okayed for pt to be discharged from pacu to med/surg for further monitoring as long as pt's sats maintained above 91% on 3l/nc, will continue to monitor 312-detailed report called to RAZIA Chrisitan 316-pt transported to 2nd floor room 204 via hospital bed w/radha rails up per razia Bird and ALLISON Rosas and left in care of RAZIA Christian with bed locked in lowest position, vss, pt reports will call girlfriend to notify out of surgery after 399, pt stable
[2021-10-29 03:58] LABS: Microscopic,Cath URINE MICROSCOPIC (MICROSCOPIC)
[2021-10-29 04:02] LABS: Appearance,Urine/Cath CLEAR (Clear); Bilirubin,Cath Negative (Negative); Blood, Urine/Cath Negative (Negative); Color,Urine/Cath YELLOW (Yellow); Glucose,Urine/Cath (UA) Negative (Negative); Ketones,Urine/Cath Negative (Negative); Leukocyte Esterase,Cath Negative (Negative); Nitrate,Cath Negative (Negative); Protein,Urine/Cath TRACE (Negative)
[2021-10-29 04:19] LABS: Bacteria,Urine/Cath 1+ /lpf; Mucus,Urine/Cath 1+ /lpf
--- NOTE | 2021-10-29 07:03 | P.PN_ITS ---
Subjective Narrative: Postoperative pain as expected. Utilizing PEDIATRIC PHYSICIAN ASSISTANT. Progress Note: A&P (1) Incarcerated ventral hernia Status: Acute (2) Small bowel obstruction Status: Acute (3) Diabetes Status: Acute Assessment and plan: Continue sliding scale insulin for now Assessment and Plan for All Diagnoses:: Overall, doing fairly well status post exploratory laparotomy with extensive lysis of adhesions and primary repair of hernia. Remove Ospina catheter Ambulate Continue nasogastric decompression for now Ice chips Exam Vital signs and Labs for Last 24 Hours: Temp Pulse Resp BP Pulse Ox 97.6 F 94 H 17 108/74 L 92 L 10/29/21 03:45 10/29/21 04:00 10/29/21 03:45 10/29/21 03:45 10/29/21 04:00 Laboratory Results - last 24 hr 10/28/21 21:45: Urine Color Dark yellow, Urine Appearance Clear, Urine pH 6.0, Ur Specific [place] 1.025, Urine Protein Trace, Urine Glucose (UA) Negative, Urine Ketones Negative, Urine Blood Negative, Urine Nitrate Negative, Urine Bilirubin Negative, Urine Urobilinogen 2.0, Ur Leukocyte Esterase 1+ A, Urine WBC 5-10, Urine Bacteria 1+, Urine Mucus 1+ 10/28/21 22:11: WBC 9.8, RBC 5.26, Hgb 16.1, Hct 47.5, MCV 90.3, MCH 30.6, MCHC 33.9, RDW 14.2, Plt Count 257, MPV 8.5, Neut % (Auto) 62.7, Lymph % (Auto) 25.5, [place] % (Auto) 6.8, Eos % (Auto) 3.7, Baso % (Auto) 1.3, Neut # (Auto) 6.1, Lymph # (Auto) 2.5, [place] # (Auto) 0.7, Eos # (Auto) 0.4, Baso # (Auto) 0.1 10/28/21 22:11: Sodium 139, Potassium 3.8, Chloride 102, Carbon Dioxide 30, Anion Gap 10.8, BUN 14, Creatinine 1.00, Estimated Creat Clear 200, Estimated GFR 82, Est GFR ( Amer) 100, Glucose 102 H, Calcium 8.4, Total Bilirubin 0.7, AST 63 H, ALT 91 H, Alkaline Phosphatase 59, Total Protein 6.8, Albumin 4.2, Globulin 2.6, Albumin/Globulin Ratio 1.6, Lipase 40 10/28/21 22:11: Lactate 1.1 10/28/21 23:55: SARS-CoV-2 (PCR) Not detected, Influenza A Untype (PCR) Not detected, Influenza Type B (PCR) Not detected 10/29/21 00:55: Urine Color Yellow, Urine Appearance Clear, Urine pH 6.0, Ur Specific [place] 1.020, Urine Protein Trace, Urine Glucose (UA) Negative, Urine Ketones Negative, Urine Blood Negative, Urine Nitrate Negative, Urine Bilirubin Negative, Urine Urobilinogen 1.0, Ur Leukocyte Esterase Negative, Urine RBC 3-5, Urine WBC 5-10, Urine Bacteria 1+ I & O for Last 24 hours: Intake & Output 10/26/21 10/27/21 10/28/21 10/29/21 11:59 11:59 11:59 11:59 Intake Total 1900 / 1900 Output Total 75 / 75 Balance 1825 / 1825 Weight 320 lb 0.015 oz - Constitutional no acute distress - *Routine Respiratory Exam Absent: respiratory distress - *Routine Cardiovascular Exam Absent: tachycardia - *Routine Abdominal Exam Comments: Dressing intact. No cellulitis.
--- NOTE | 2021-10-29 07:06 | HMH.PHAVTE ---
[facility] Pharmacy VTE Monitoring - Patient Demographics Admission date: 10/29/21 Report Date: 10/29/21 Time: 07:06 Allergies/Adverse Reactions: Patient Allergies No Known Allergies Allergy (Verified 10/05/21 11:59) Height: 2.01 m Weight: 145.15 kg Patient Problems: Current Active Problems Periumbilical hernia (Acute) Small bowel obstruction (Acute) Incarcerated ventral hernia (Acute) Diabetes (Acute) - VTE Risk Labs: VTE Related Lab Results Hgb 16.1 g/dL (14.1-18.0) 10/28/21 22:11 Hct 47.5 % (42.0-52.0) 10/28/21 22:11 Plt Count 257 K/mm3 (142-424) 10/28/21 22:11 BUN 14 mg/dl (9-20) 10/28/21 22:11 Creatinine 1.00 mg/dl (0.66-1.25) 10/28/21 22:11 Estimated Creat Clear 200 mL/min (50-200) 10/28/21 22:11 Was VTE Risk Assessment Performed: Yes VTE Score: 4 VTE Risk Level: Low Risk - Prophylaxis VTE Prophylaxis Ordered?: Yes Types of VTE Prophylaxis: IPCS Thigh High, Pharmacological Location of Applied Device: Bilateral Lower Extremeties Pharmacologic Type: Enoxaparin
--- NOTE | 2021-10-29 07:18 | HMH.PHAINT ---
MEDICATION RECONCILIATION COMPLETED ON PATIENT USING EXTERNAL FILL HISTORY FROM PHARMACY AND ALEXSANDER REPORT. -DALTON CHANDRAD
[2021-10-29 07:25] LABS: Basophils # 0.1 K/mm3 (0-0.2); Basophils % 0.6 % (0.1-2.0); Eosinophils # 0.1 K/mm3 (0.0-0.4); Eosinophils % 0.4 % (0.1-12.0); Lymphocytes # 1.6 K/mm3 (0.7-4.5); Lymphocytes % 11.8 % (10-50); Mean Corpuscular HGB Conc 33.3 g/dL (31.8-35.4); Mean Corpuscular Hemoglobin 30.3 pg (27.0-31.2); Mean Corpuscular Volume 90.9 fl (80-94); Mean Platelet Volume 8.4 fl (7.4-10.4); Monocytes # 0.7 K/mm3 (0.1-1.0); Monocytes % 5.3 % (1.7-9.3); Neutrophils # 10.9 K/mm3 (1.8-7.8); Neutrophils % 81.9 % (37.0-80.0); Platelet Count 248 K/mm3 (142-424); Red Blood Count 4.95 M/mm3 (4.60-6.20); Red Cell Distribution Width 14.3 % (11.5-17.5); White Blood Count 13.3 K/mm3 (4.8-10.8)
[2021-10-29 07:40] LABS: Anion Gap 11.9 mEq/L (5-15); Blood Urea Nitrogen 18 mg/dl (9-20); Calcium 8.3 mg/dl (8.4-10.2); Carbon Dioxide 27 mmol/L (22.0-30.0); Chloride 104 mmol/L (98-107); Creatinine Clearance Estimated 200 mL/min (50-200); Estimated Glomerular Filt Rate 82 ml/min (>60); GFR (African American) 100 ML/MIN (>60); Glucose 117 mg/dl (74-100); Potassium 3.9 mmoL/L (3.5-5.1); Sodium 139 mmol/L (136-145)
--- NOTE | 2021-10-29 08:19 | PC.NURSE ---
Patient has used 10 mg of morphine from the LICENSED PRACTICAL NURSE INSTRUCTOR pump this RN's shift.
--- NOTE | 2021-10-29 15:40 | PC.NURSE ---
Addendum entered by Nickie Bland RN 10/29/21 15:44: Pt stated his NG tube was pulled out when he attempted to use urinal at bedside. Dr. Hernandez's office called and JERRY notified. JERRY then sent a message to Dr. Hernandez explaining what had happened. JERRY told this nurse that Dr. Hernandez would prefer the NG tube to be reinserted but we cannot force him. Patient was told of Dr. Hernandez's preference but refused to allow nurses to attempt an NG tube at bedside and stated if he knew Dr. Hernandez was going to insert one before he would have said no before. Original Note: Dr. Hernandez's office called due to patient complaint of pain not affected by morphine PAEDODONTIST and soreness from NG tube. Dilaudid PRN, Toradol scheduled, and Chloraseptic spray prn at bedside order.
[2021-10-29 20:34] LABS: POC Glucose,Bedside 93 (70-110)
[2021-10-30] VITALS (10 sets, daily range): BP systolic 111–157; BP diastolic 70–101; PULSE 85–99; RESP 15–18; TEMP 36.4–37.1; O2SAT 91–97; BMI 43.4; BMI 43.3
[2021-10-30 06:38] LABS: POC Glucose,Bedside 83 (70-110)
--- NOTE | 2021-10-30 06:56 | P.PN_ITS ---
Subjective Patient reports: feels better, flatus Narrative: The patient states that his nasogastric tube accidentally got pulled out yesterday . No nausea. No emesis. He has passed flatus overnight. Progress Note: A&P (1) Incarcerated ventral hernia Status: Acute (2) Small bowel obstruction Status: Acute (3) Diabetes Status: Acute Assessment and Plan for All Diagnoses:: Overall, doing well status post exploratory laparotomy with extensive lysis of adhesions and primary hernia repair. 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 Exam Vital signs and Labs for Last 24 Hours: Temp Pulse Resp BP Pulse Ox 98.4 F 97 H 17 136/85 91 L 10/30/21 04:00 10/30/21 04:00 10/30/21 04:00 10/30/21 04:00 10/30/21 04:00 Laboratory Results - last 24 hr 10/29/21 06:38: WBC 13.3 H D, RBC 4.95, Hgb 15.0, Hct 45.0, MCV 90.9, MCH 30.3, MCHC 33.3, RDW 14.3, Plt Count 248, MPV 8.4, Neut % (Auto) 81.9 H, Lymph % (Auto) 11.8, [place] % (Auto) 5.3, Eos % (Auto) 0.4, Baso % (Auto) 0.6, Neut # (Auto) 10.9 H, Lymph # (Auto) 1.6, [place] # (Auto) 0.7, Eos # (Auto) 0.1, Baso # (Auto) 0.1 10/29/21 06:38: Sodium 139, Potassium 3.9, Chloride 104, Carbon Dioxide 27, Anion Gap 11.9, BUN 18 D, Creatinine 1.00, Estimated Creat Clear 200, Estimated GFR 82, Est GFR ( Amer) 100, Glucose 117 H, Calcium 8.3 L 10/29/21 15:51: POC Glucose 93 10/29/21 21:11: POC Glucose 83 I & O for Last 24 hours: Intake & Output 10/27/21 10/28/21 10/29/21 10/30/21 11:59 11:59 11:59 11:59 Intake Total 1900 / 1900 Output Total 1225 / 1225 1350 / 1350 Balance 675 / 675 -1350 / -1350 Weight 320 lb 0.015 oz 387 lb 6.4 oz Microbiology Reports for the Last 24 Hours: Microbiology 10/28/21 21:45 Urine,Clean Catch Urine Culture - Preliminary NO GROWTH AFTER 24 HOURS - Constitutional no acute distress - *Routine Respiratory Exam Absent: respiratory distress - *Routine Cardiovascular Exam Absent: tachycardia - *Routine Abdominal Exam Present: soft Comments: Incision healing without sign of infection
--- NOTE | 2021-10-30 06:58 | PC.NURSE ---
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 Patient has used 57mg.
[2021-10-30 07:48] LABS: Basophils # 0.1 K/mm3 (0-0.2); Basophils % 0.6 % (0.1-2.0); Eosinophils # 0.3 K/mm3 (0.0-0.4); Eosinophils % 2.7 % (0.1-12.0); Hematocrit 42.4 % (42.0-52.0); Hemoglobin 14.1 g/dL (14.1-18.0); Lymphocytes # 1.8 K/mm3 (0.7-4.5); Lymphocytes % 18.9 % (10-50); Mean Corpuscular HGB Conc 33.2 g/dL (31.8-35.4); Mean Corpuscular Hemoglobin 30.6 pg (27.0-31.2); Mean Corpuscular Volume 92.1 fl (80-94); Mean Platelet Volume 9.3 fl (7.4-10.4); Monocytes # 0.8 K/mm3 (0.1-1.0); Monocytes % 8.6 % (1.7-9.3); Neutrophils # 6.6 K/mm3 (1.8-7.8); Neutrophils % 69.2 % (37.0-80.0); Platelet Count 214 K/mm3 (142-424); Red Cell Distribution Width 14.3 % (11.5-17.5); White Blood Count 9.5 K/mm3 (4.8-10.8)
[2021-10-30 07:55] LABS: Anion Gap 10.3 mEq/L (5-15); Blood Urea Nitrogen 16 mg/dl (9-20); Calcium 8.1 mg/dl (8.4-10.2); Carbon Dioxide 28 mmol/L (22.0-30.0); Chloride 101 mmol/L (98-107); Creatinine Clearance Estimated 129 mL/min (50-200); Estimated Glomerular Filt Rate 82 ml/min (>60); GFR (African American) 100 ML/MIN (>60); Glucose 89 mg/dl (74-100); Potassium 3.3 mmoL/L (3.5-5.1); Sodium 136 mmol/L (136-145)
--- NOTE | 2021-10-30 08:28 | HMH.ANESII ---
[facility] Anesthesia Record Part II Discharge Time: 03:15 Destination: Medical Surgical Department PACU nurse assessment reviewed?: Yes Patient Condition:: Good Anesthesia Complications:: None Swallowing reflex intact?: Yes Cyanosis?: No Blood Pressure: 112/70 Pulse Rate: 99 Temperature: 98.7 F Mental Status: Alert & Oriented Pain level:: 0 Nausea and/or vomitting:: None Intake, IV Amount: 0
[2021-10-30 09:53] LABS: POC Glucose,Bedside 97 (70-110)
--- NOTE | 2021-10-30 17:50 | PC.NURSE ---
Reassessment completed, Pt. reports pain at 7/10. No further acute changes from previous assessment. Lungs CTA, Heart at RRR, Bowel sounds present. 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 Pt. 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
--- NOTE | 2021-10-30 19:45 | PC.NURSE ---
Pt called out with reports if incision draining. Serosanginous fluid noted to incision and pts gown, terence intact, ABD pads applied and taped
[2021-10-30 20:13] LABS: POC Glucose,Bedside 92 (70-110)
[2021-10-30 20:13] LABS: POC Glucose,Bedside 110 (70-110)
[2021-10-31] VITALS: BP 168/100; PULSE 88; RESP 17; TEMP 36.8; O2SAT 95
[2021-10-31 03:27] LABS: POC Glucose,Bedside 102 (70-110)
--- NOTE | 2021-10-31 03:41 | PC.NURSE ---
Pt has rested in intervals this shift. A&O x4, BLT lungs CTA, bowel sounds present in all 4 quadrants, Pts IV's patent and infusing well. Pt tolerating clear liquid diet without difficulty. Midline incision with dressing C/D/I. Pt reports pain is better controlled with new pain medication order and without YOGA INSTRUCTOR pump. Pt has been medicated per eMAR. Pt denies SOA, headache, N/V.
[2021-10-31 04:00] VITALS: BP 121/82; PULSE 94; RESP 19; TEMP 36.8; O2SAT 96
[2021-10-31 05:33] VITALS: BMI 45.1
[2021-10-31 07:49] VITALS: BP 146/92; PULSE 82; RESP 18; TEMP 36.6; O2SAT 96
[2021-10-31 08:00] VITALS: O2SAT 97
[2021-10-31 08:33] LABS: Basophils # 0.1 K/mm3 (0-0.2); Basophils % 0.6 % (0.1-2.0); Eosinophils # 0.3 K/mm3 (0.0-0.4); Eosinophils % 3.5 % (0.1-12.0); Lymphocytes % 23.4 % (10-50); Mean Corpuscular HGB Conc 32.4 g/dL (31.8-35.4); Mean Corpuscular Hemoglobin 30.1 pg (27.0-31.2); Mean Corpuscular Volume 92.8 fl (80-94); Mean Platelet Volume 9.2 fl (7.4-10.4); Monocytes # 0.8 K/mm3 (0.1-1.0); Monocytes % 9.1 % (1.7-9.3); Neutrophils # 5.5 K/mm3 (1.8-7.8); Neutrophils % 63.4 % (37.0-80.0); Platelet Count 203 K/mm3 (142-424); Red Blood Count 4.31 M/mm3 (4.60-6.20); Red Cell Distribution Width 14.6 % (11.5-17.5); White Blood Count 8.6 K/mm3 (4.8-10.8)
[2021-10-31 08:44] LABS: Anion Gap 6.5 mEq/L (5-15); Blood Urea Nitrogen 10 mg/dl (9-20); Calcium 7.9 mg/dl (8.4-10.2); Carbon Dioxide 28 mmol/L (22.0-30.0); Chloride 104 mmol/L (98-107); Creatinine Clearance Estimated 161 mL/min (50-200); Estimated Glomerular Filt Rate 107 ml/min (>60); GFR (African American) 129 ML/MIN (>60); Glucose 118 mg/dl (74-100); Potassium 3.5 mmoL/L (3.5-5.1); Sodium 135 mmol/L (136-145)
[2021-10-31 08:44] LABS: POC Glucose,Bedside 132 (70-110)
--- NOTE | 2021-10-31 09:28 | HMH.GSPN ---
Subjective Patient reports: feels better, flatus, bowel movement Progress Note: A&P (1) Incarcerated ventral hernia Status: Acute (2) Small bowel obstruction Status: Acute (3) Diabetes Status: Acute Assessment and Plan for All Diagnoses:: Overall, doing fairly well status post exploratory laparotomy with extensive lysis of adhesions and primary hernia repair. Continue to increase ambulation Keep midline incision clean and dry Closely monitor midline incision for signs of infection Continue sliding-scale insulin Convert to PO pain medication Soft diet ordered Exam Vital signs and Labs for Last 24 Hours: Temp Pulse Resp BP Pulse Ox 97.9 F 82 18 146/92 H 96 10/31/21 07:49 10/31/21 07:49 10/31/21 07:49 10/31/21 07:49 10/31/21 07:49 Laboratory Results - last 24 hr 10/30/21 09:46: POC Glucose 97 10/30/21 15:06: POC Glucose 110 10/30/21 19:49: POC Glucose 92 10/31/21 03:10: POC Glucose 102 10/31/21 07:31: WBC 8.6, RBC 4.31 L, Hgb 13.0 L, Hct 40.0 L, MCV 92.8, MCH 30.1, MCHC 32.4, RDW 14.6, Plt Count 203, MPV 9.2, Neut % (Auto) 63.4, Lymph % (Auto) 23.4, [place] % (Auto) 9.1, Eos % (Auto) 3.5, Baso % (Auto) 0.6, Neut # (Auto) 5.5, Lymph # (Auto) 2.0, [place] # (Auto) 0.8, Eos # (Auto) 0.3, Baso # (Auto) 0.1 10/31/21 07:31: Sodium 135 L, Potassium 3.5, Chloride 104, Carbon Dioxide 28, Anion Gap 6.5, BUN 10 D, Creatinine 0.80, Estimated Creat Clear 161, Estimated GFR 107, Est GFR ( Amer) 129 D, Glucose 118 H, Calcium 7.9 L 10/31/21 08:36: POC Glucose 132 H I & O for Last 24 hours: Intake & Output 10/28/21 10/29/21 10/30/21 10/31/21 11:59 11:59 11:59 11:59 Intake Total 1900 / 1900 480 / 480 1700 / 1700 Output Total 1225 / 1225 1350 / 1350 450 / 450 Balance 675 / 675 -870 / -870 1250 / 1250 Weight 320 lb 0.015 oz 387 lb 6.4 oz 401 lb 7 oz Microbiology Reports for the Last 24 Hours: Microbiology 10/28/21 21:45 Urine,Clean Catch Urine Culture - Final Multiple organisms, suggests contamination. - Constitutional no acute distress - *Routine Respiratory Exam Absent: respiratory distress - *Routine Cardiovascular Exam Present: RRR - *Routine Abdominal Exam Present: soft Comments: Incision clean, dry, and intact. No spreading cellulitis; however, mild blush noted.
[2021-10-31 15:30] VITALS: BP 133/85; PULSE 84; RESP 18; TEMP 36.5; O2SAT 96
[2021-10-31 16:11] LABS: POC Glucose,Bedside 118 (70-110)
[2021-10-31 20:21] VITALS: BP 131/80; PULSE 74; RESP 18; TEMP 36.6; O2SAT 97
[2021-10-31 21:01] LABS: POC Glucose,Bedside 101 (70-110)
[2021-11-01] VITALS: BP 124/89; PULSE 78; RESP 18; TEMP 36.7; O2SAT 97
--- NOTE | 2021-11-01 03:23 | PC.NURSE ---
Patient's dsg was changed as there was some serous drainage noted seeping through current bandage. dry gauze, ABD pad and silk tape used. Patient tolerated it well. Pain has been better controlled thus far.
[2021-11-01 03:55] VITALS: BP 141/85; PULSE 77; RESP 20; TEMP 36.8; O2SAT 97
[2021-11-01 05:00] VITALS: BMI 98.6
[2021-11-01 08:00] VITALS: BP 147/93; PULSE 74; RESP 18; TEMP 36.4; O2SAT 96; O2SAT 97
--- NOTE | 2021-11-01 09:34 | HMH.GSPN ---
Subjective Patient reports: no new complaints, feels better, pain is less, flatus, bowel movement Progress Note: A&P (1) Incarcerated ventral hernia Status: Acute (2) Small bowel obstruction Status: Acute (3) Diabetes Status: Acute Assessment and Plan for All Diagnoses:: Overall, doing well status post exploratory laparotomy with extensive lysis of adhesions and primary hernia repair. Despite relative high risk for dehiscence, no notable signs as of yet. Minimal anterior abdominal wall blush but no true cellulitis or signs of spreading cellulitis. Discharge home with close outpatient follow-up No heavy lifting Exam Vital signs and Labs for Last 24 Hours: Temp Pulse Resp BP Pulse Ox 97.5 F L 74 18 147/93 H 96 11/01/21 08:00 11/01/21 08:00 11/01/21 08:00 11/01/21 08:00 11/01/21 08:00 Laboratory Results - last 24 hr 10/31/21 15:50: POC Glucose 118 H 10/31/21 20:40: POC Glucose 101 I & O for Last 24 hours: Intake & Output 10/29/21 10/30/21 10/31/21 11/01/21 11:59 11:59 11:59 11:59 Intake Total 1900 / 1900 480 / 480 1700 / 1700 720 / 720 Output Total 1225 / 1225 1350 / 1350 450 / 450 Balance 675 / 675 -870 / -870 1250 / 1250 720 / 720 Weight 320 lb 0.015 oz 387 lb 6.4 oz 401 lb 7 oz 878 lb 5.146 oz Microbiology Reports for the Last 24 Hours: Microbiology 10/28/21 21:45 Urine,Clean Catch Urine Culture - Final Multiple organisms, suggests contamination. - Constitutional no acute distress - *Routine Respiratory Exam Absent: respiratory distress - *Routine Cardiovascular Exam Present: RRR - *Routine Abdominal Exam Present: soft Comments: Incision clean. Minimal blush along anterior abdomen remains. No focal/spreading cellulitis. Small amount of drainage (serous) from mid/lower incision.
--- NOTE | 2021-11-01 09:54 | HMH.DCSUM ---
General - General Admission date:: 10/29/21 Discharge date: 11/01/21 HPI HPI: This is a 41-year-old gentleman who presented to the emergency department with increasing abdominal pain. Radiographic evidence of incarcerated ventral hernia (recurrent) with small bowel obstruction noted. The surgical service was consulted for evaluation management. Hospital Course Hospital Course: The patient was taken to the operating room for exploratory laparotomy, extensive lysis of adhesions, and primary hernia repair. Please see operative report for detail. Postoperatively, he convalesced well. He remained afebrile with stable and normal vital signs. Although initially requiring nasogastric decompression, he did have relatively brisk return of bowel function. His diet was slowly advanced and he was deemed appropriate for discharge on the morning of November 01. Blood sugars well controlled with sliding scale insulin throughout hospitalization. Minimal anterior abdominal wall blush noted postoperatively. No obvious cellulitis or spreading cellulitis noted. Patient remained afebrile. At the time of discharge the patient was ambulating without difficulty and tolerating a soft diet. Objective Vital signs: Temp Pulse Resp BP Pulse Ox 97.5 F L 74 18 147/93 H 96 11/01/21 08:00 11/01/21 08:00 11/01/21 08:00 11/01/21 08:00 11/01/21 08:00 no acute distress - *Routine HEENT Exam Head: Present: normocephalic Eye: Present: EOMI ENT: Present: mucous membranes moist - *Routine Neck Exam Present: full ROM - Routine Chest/Breast/Axilla Exam Chest wall: Absent: tenderness - *Routine Respiratory Exam Absent: respiratory distress - *Routine Cardiovascular Exam Present: RRR - *Routine Abdominal Exam Present: soft - *Routine Rectal Exam Patient deferred: visual exam - *Routine Exam Patient deferred: penile exam - *Routine Extremities Exam Present: full ROM. Absent: cyanosis, clubbing, edema - Routine Back/Spine/Pelvis Exam Back/Spine: Present: full ROM - *Routine Skin Exam Absent: cyanosis, erythema - *Routine Neurological Exam Present: alert, oriented X3 Results Labs on day of discharge: Labs from last 24 hours 10/31/21 10/31/21 20:40 15:50 POC Glucose 101 118 H DS: Diagnosis - Discharge Diagnosis (1) Incarcerated ventral hernia Status: Acute (2) Small bowel obstruction Status: Acute (3) Diabetes Status: Acute Discharge Plan - Patient Discharge Instructions ACTIVITY: No heavy lifting DIET: advance to your usual diet Patient Instructions: DI for Small Bowel Obstruction, DI for Exploratory Laparotomy, DI for Acute Abdominal Pain, DI for Surgical Site Infection, DI for Ventral Hernia - Follow up Plan Follow up with: Mohan Eli MD [Staff Physician] - (Need follow-up November 03 or November 05 for evaluation of incision and to possibly remove one half of terence.(Note: Dr. Hernandez out of town this week)) ProviderIlana MD [Primary Care Provider] - Seymour Hernandez MD [Staff Physician] - 11/11/21 Disposition: Home, Self-Care Condition at discharge:: Improved Home Medications: Home Medications Medication Instructions Recorded Confirmed Type Albuterol Sulfate [Proair Hfa] 1 puff IH Q4HP PRN 10/05/21 10/29/21 History Gabapentin [Gabapentin 400mg Cap] 400 mg PO QID 10/29/21 10/29/21 History Oxycodone HCl/Acetaminophen 1 tab PO BIDP PRN 10/29/21 10/29/21 History [Percocet 7.5/325mg tablet] Famotidine [Pepcid 20mg Tablet] 20 mg PO DAILY 30 Days #30 tab 11/01/21 Rx Oxycodone HCl/Acetaminophen 1 - 2 each PO Q6 PRN #27 tab 11/01/21 Rx [Percocet 7.5-325 mg Tablet] Prescriptions/Medication Reconciliation: New Oxycodone HCl/Acetaminophen [Percocet 7.5-325 mg Tablet] 1 - 2 each PO Q6 PRN #27 tab PRN Reason: post-op pain Famotidine [Pepcid 20mg Tablet] 20 mg PO DAILY 30 Days #30 tab Continued Albuterol Sulfate
--- NOTE | 2021-11-01 10:22 | PC.NURSE ---
PT EDUCATED ON HOW TO TAKE PAIN MEDICATIONS.
--- NOTE | 2021-11-02 12:32 | CARE MANAGER ---
Contacted patient regarding follow up from hospital discharge. Patient has not picked up prescriptions from pharmacy yet. He states he just got a text message about them from [employer] and he is going to call them. He is having some pain and we discussed how the pain medications could help that were prescribed. He has not made a follow up appointment yet. Instructed to contact surgery and make an appointment this week with Dr. Eli as Dr. Hernandez is out of town this week. He states he will do this and denies any other questions or concerns. RAZIA Aguero
== END 2021-11-01 10:40 | disposition home or self-care (01) | DRG 331 ==
LOC: ER 10-29 → SDC 10-29 00:48 → 2ND 10-29 01:22
PROVIDERS: Admitting Provider Surgery; Emergency Provider Emergency Medicine; Visit Provider Surgery
PROC: 0WQF0ZZ Repair Abdominal Wall, Open Approach (ICD-10-PCS; principal; 2021-10-29 01:00)
DX: K43.0 Incisional hernia with obstruction, without gangrene (principal); E11.9 Type 2 diabetes mellitus without complications; F17.210 Nicotine dependence, cigarettes, uncomplicated; Z20.822 Contact with and (suspected) exposure to COVID-19
CPT/HCPCS: 49566; 44005; 44602; 36415; 74177; 80048; 80053; 81001; 82962; 83605; 83690; 85025; 87086; 88305; 96365; 96375; 99285; C9803; J0131; J2405; J2543; Q9967; U0003; U0005

== ENCOUNTER 2021-11-06 18:43 | Emergency (ER) | payer MEDICAID, SELFPAY ==
[2021-11-06 19:01] VITALS: BP 154/94; PULSE 103; RESP 18; TEMP 36.9; O2SAT 99; BMI 36.0
[2021-11-06 20:20] VITALS: BP 147/75; PULSE 94; RESP 18; TEMP 36.9; O2SAT 99
== END 2021-11-06 20:22 | disposition left against medical advice (07) ==
LOC: UTC 18:53 → ER 18:56
PROVIDERS: Emergency Provider Emergency Medicine
DX: Z53.21 Procedure and treatment not carried out due to patient leaving prior to being seen by health care provider (principal)
CPT/HCPCS: 99211

== ENCOUNTER 2021-11-25 13:25 | Outpatient (CLI) | payer MEDICAID, SELFPAY ==
--- NOTE | 2021-11-25 16:03 | PC.NURSE ---
1345-REMOVED DRESSING AND PACKING FROM ABDOMINAL WOUND. IRRIGATED WITH NS. WOUND TUNNELS UPWARD AROUND 9 CM AND DOWNWARD AROUND 1 CM. PACKED WITH BLACK FOAM FROM WOUND VAC KIT AND APPLIED VAC AND TURNED ON. GOOD SEAL AND SUCTION PRESENT.
== END 2021-11-25 14:15 | disposition home or self-care (01) ==
LOC: INF 13:26
PROVIDERS: Visit Provider Orthopaedic Surgery
DX: S31.109D Unspecified open wound of abdominal wall, unspecified quadrant without penetration into peritoneal cavity, subsequent encounter (principal); Z48.01 Encounter for change or removal of surgical wound dressing
CPT/HCPCS: G0463

== ENCOUNTER 2021-11-27 13:28 | Outpatient (CLI) | payer MEDICAID, SELFPAY ==
--- NOTE | 2021-11-27 16:11 | PC.NURSE ---
1300 - REMOVED DRESSING AND FOAM PACKING FROM WOUND. IRRIGATED WOUND WITH NS AND DRIED WITH 4X4'S. WOUND TUNNELS UPWARD AND SLIGHTLY DOWNWARD. PACKED WITH BLACK FOAM FROM WOUND VAC DRESSING KIT. COVERED WITH CLEAR DRESSING AND APPLIED WOUND VAC. GOOD SUCTION NOTED.
== END 2021-11-27 13:35 | disposition home or self-care (01) ==
LOC: INF 13:28
PROVIDERS: Visit Provider Orthopaedic Surgery
DX: S31.109D Unspecified open wound of abdominal wall, unspecified quadrant without penetration into peritoneal cavity, subsequent encounter (principal); Z48.01 Encounter for change or removal of surgical wound dressing
CPT/HCPCS: G0463

== ENCOUNTER 2021-11-30 13:11 | Outpatient (CLI) | payer MEDICAID, SELFPAY ==
--- NOTE | 2021-11-30 15:15 | PC.NURSE ---
1315 - TURNED WOUND VAC OFF AND REMOVED DRESSING. WET FOAM PACKING WITH NS AND REMOVED. IRRIGATED WOUND WITH NS AND DRIED OUT WITH DRY GAUZE. WOUND TUNNELS UPWARD 3CM AND DOWNWARD 2CM. PACKED WITH FOAM PACKING FROM WOUND VAC DRESSING KIT. APPLIED CLEAR DRESSING AND WOUND SUCTION PAD OVER WOUND AND TURNED WOUND VAC ON TO 125 INTERMITTENT.
== END 2021-11-30 13:35 | disposition home or self-care (01) ==
LOC: INF 13:11
PROVIDERS: Visit Provider Orthopaedic Surgery
DX: S31.109D Unspecified open wound of abdominal wall, unspecified quadrant without penetration into peritoneal cavity, subsequent encounter (principal); Z48.01 Encounter for change or removal of surgical wound dressing
CPT/HCPCS: G0463

== ENCOUNTER 2022-01-06 14:30 | Outpatient (RCR) | payer MEDICAID, SELFPAY ==
--- NOTE | 2021-12-02 09:54 | HMH.PTOPWND ---
Rehab Outpt Wound Evaluation Rehab OP Wound Evaluation Start: 12/02/21 09:15 Freq: Status: Active Protocol: Document 12/02/21 09:43 DEREJE (Rec: 12/02/21 09:54 PHOPERCY [id number]) Electronically Signed By Parth Livingston, PT 12/02/21 09:43 Subjective/History History History Pt is 41 yowm who presents with abdominal wound S/P hernia repair on 10/29/21. He currently has gauze packing that was placed at surgeon appointment less than 1 hr ago , but has had VAC dressing in place previously. The wound appears healthy at this time and is closing per pt reports, unfortunately there is no previous wound documentation currently available to confirm this. He reports minimal discomfort at this time, his main concern is being able to find work to support his family which is difficult with the current dressings. Subjective Subjective Pain currently 1/10, no increased pain with dressing change. VAC dressing replaced with good seal noted. Wound Eval Wound Lower Abdomen Wound Type Incision Is This a Chronic Wound No Wound Length (cm) 2.0 Wound Width (cm) 1.6 Wound Depth (cm) 2.1 Wound Bed Appearance Beefy Red,Yellow Percentage Granulated (%) 80 Percentage of Slough (%) 20 Wound Margins Description Well Defined Tunneling Position 11 o'clock Tunneling Depth (cm) 5.0 Surrounding Tissue Appearance [place] Edema Appearance Puffy Drainage Description Serosanguineous Drainage Amount Moderate Drainage Odor No Odor Wound Topical Solution/Irrigant Saline Irrigant Packing Type Woundvac Sponge Primary Dressing Transparent Drape Wound Debridement Method Forceps,Gauze Wound Debridement Amount of Tissue Minimal Removed Dressing Change Patient Tolerance Tolerated Well Wound Problems/Impairments Impairments Problems/Impairmments Palpation Tenderness,Impaired Work Activities,Wound Care Needs,Subjective C/O Pain,
--- NOTE | 2021-12-30 14:55 | HMH.RHREAS ---
Rehab Reassessment Rehab OP Re-assessment Start: 12/30/21 14:46 Freq: Status: Active Protocol: Document 12/30/21 14:51 DEREJE (Rec: 12/30/21 14:55 DEREJE [id number]) Electronically Signed By Parth Livingston, PT 12/30/21 14:51 Rehab Re-assessment Subjective Subjective Pt reports, I think its not as deep, but it feels like it still drains some. Objective Objective Notes Wounds appears to be healing steadily. Superior and middle wounds that were new last visit after MD appointment have now consolidated into one wound. Abdominal wounds: Superior: L= 2.8 cm, W= 1.5 cm , D= 0.6 cm. Inferior: L= 0.8 cm, W= 0.2 cm . Assessment Progress Assessment Progressing as Expected Assessment Notes Wounds have shown less drainage and significant decrease in depth at this time . Moderate drainage continues, however. He has mild slough, but granulation is increased and no undermining noted at this time. Patient goals met ST Goals Not Met LT,2,3 Revised Goals none Plan Plan Continue per initial POC. Frequency of Therapy 2 x/wk Duration of therapy 4 wks Time and Billing Re-Eval Time 13 Re-Eval Billing Units 1 PHYSICIAN CERTIFICATION: I certify the specified therapy services for Chris Ledezma are required, authorized, and reviewed every 30 days.
== END 2022-01-06 14:35 | disposition home or self-care (01) ==
LOC: PT 14:30
PROVIDERS: Visit Provider Surgery
DX: S31.109D Unspecified open wound of abdominal wall, unspecified quadrant without penetration into peritoneal cavity, subsequent encounter (principal)
CPT/HCPCS: 97162; 97164; 97597; 97605

== ENCOUNTER → 2022-05-28 15:14 | Outpatient (CLI) | payer MEDICAID, SELFPAY ==
--- NOTE | 2022-05-28 15:22 | XR_ITS ---
FINAL REPORT TECHNIQUE: Single view chest CLINICAL HISTORY: COPD, SOB FINDINGS: A single view of the chest was obtained. The heart and mediastinum are within normal limits. The lungs are clear. There is no pneumothorax. Osseous structures are unremarkable. IMPRESSION: No acute cardiopulmonary process. Reviewed, Interpreted and Dictated by Mohan Alvarez III, MD Transcribed by Martha Pedro Authenticated and [facility]
[2022-05-28 15:31] LABS: Microscopic, Urine URINE MICROSCOPIC (MICROSCOPIC)
[2022-05-28 16:06] LABS: Appearance,Urine CLEAR (Clear); Bilirubin,Urine Negative (Negative); Blood, Urine Negative (Negative); Color,Urine YELLOW (Yellow); Glucose,Urine (UA) Negative (Negative); Ketones,Urine Negative (Negative); Leukocyte Esterase,Urine Negative (Negative); Nitrate,Urine Negative (Negative); Protein,Urine 1+ (Negative); Specific Gravity, Urine >= 1.030 (1.005-1.030); Urobilinogen,Urine 0.2 EU/dl (0.2)
[2022-05-28 16:07] LABS: Basophils # 0.1 K/mm3 (0-0.2); Basophils % 0.6 % (0.1-2.0); Eosinophils # 0.4 K/mm3 (0.0-0.4); Eosinophils % 3.5 % (0.1-12.0); Hematocrit 48.5 % (42.0-52.0); Hemoglobin 15.8 g/dL (14.1-18.0); Lymphocytes # 2.7 K/mm3 (0.7-4.5); Mean Corpuscular HGB Conc 32.6 g/dL (31.8-35.4); Mean Corpuscular Hemoglobin 29.3 pg (27.0-31.2); Mean Corpuscular Volume 89.8 fl (80-94); Mean Platelet Volume 9.6 fl (7.4-10.4); Monocytes # 0.7 K/mm3 (0.1-1.0); Monocytes % 5.8 % (1.7-9.3); Neutrophils # 7.6 K/mm3 (1.8-7.8); Neutrophils % 66.2 % (37.0-80.0); Platelet Count 298 K/mm3 (142-424); Red Cell Distribution Width 14.3 % (11.5-17.5); White Blood Count 11.4 K/mm3 (4.8-10.8)
[2022-05-28 16:19] LABS: Squamous Epithelial Cell,Urine Occasional #/hpf (0-5)
[2022-05-28 16:21] LABS: Alanine Aminotransferase 40 U/L (12-78); Albumin Level 4.4 g/dl (3.5-5.0); Albumin/Globulin Ratio 1.6 (1.1-1.8); Alkaline Phosphatase 96 U/L (38-126); Anion Gap 17.5 mEq/L (5-15); Aspartate Amino Transferase 31 U/L (17-59); Bilirubin,Total 0.6 mg/dl (0.2-1.3); Blood Urea Nitrogen 12 mg/dl (9-20); Calcium 9.3 mg/dl (8.4-10.2); Carbon Dioxide 25 mmol/L (22.0-30.0); Chloride 101 mmol/L (98-107); Chol/HDL Ratio 5.5 (1-3.5); Cholesterol 218 mg/dl (140-200); Estimated Glomerular Filt Rate 93 ml/min (>60); GFR (African American) 113 ML/MIN (>60); Globulin 2.7 g/dL (1.3-3.2); Glucose 102 mg/dl (74-100); HDL Cholesterol 40 mg/dl (40-60); Potassium 4.5 mmoL/L (3.5-5.1); Sodium 139 mmol/L (136-145); Total Protein,Serum 7.1 g/dl (6.3-8.2); Triglycerides 255 mg/dl (30-150); VLDL Cholesterol 51 mg/dL (0-40)
[2022-05-28 16:22] LABS: Creatinine,Urine Random 205 mg/dL (Not Estab.); Hemoglobin A1C 6.7 % (4.0-6.0)
[2022-05-28 16:27] LABS: C-Reactive Protein 8.2 mg/L (0-4)
[2022-05-28 16:32] LABS: Microalbumin/Creatinine Ratio 137.3
[2022-05-28 16:34] LABS: Erythrocyte Sedimentation Rate 7 mm/hr (0-15)
[2022-05-28 16:37] LABS: Direct LDL Cholesterol 129.53 mg/dL (100-129)
[2022-06-02 03:46] LABS: Testosterone,Free 14.8 pg/mL (6.8-21.5)
== END ==
PROVIDERS: PCP Family Medicine; Visit Provider Family Medicine
DX: S31.109A Unspecified open wound of abdominal wall, unspecified quadrant without penetration into peritoneal cavity, initial encounter (principal); E11.9 Type 2 diabetes mellitus without complications; E78.5 Hyperlipidemia, unspecified; R60.9 Edema, unspecified; I10 Essential (primary) hypertension; E66.01 Morbid (severe) obesity due to excess calories; M25.561 Pain in right knee; M25.562 Pain in left knee; M79.673 Pain in unspecified foot; Z68.42 Body mass index [BMI] 45.0-49.9, adult; Z79.899 Other long term (current) drug therapy
CPT/HCPCS: 36415; 71046; 80053; 80061; 81001; 82043; 82570; 83036; 84402; 84443; 85025; 85651; 86140; 87070; 87077; 87186; 87205

== ENCOUNTER → 2022-08-13 14:55 | Outpatient (CLI) | payer MEDICAID, SELFPAY | PROVIDERS: PCP Family Medicine; Visit Provider Family Medicine | DX: S31.109A Unspecified open wound of abdominal wall, unspecified quadrant without penetration into peritoneal cavity, initial encounter (principal); B96.89 Other specified bacterial agents as the cause of diseases classified elsewhere | CPT/HCPCS: 87070; 87077; 87205 ==

== ENCOUNTER 2022-09-18 18:16 | Emergency (ER) | payer MEDICAID, SELFPAY ==
[2022-09-18 18:27] VITALS: BP 170/119; PULSE 109; RESP 20; TEMP 36.6; O2SAT 96; BMI 45.0
[2022-09-18 18:30] VITALS: BP 170/119; PULSE 109; RESP 20; TEMP 36.6; O2SAT 96; BMI 44.9
--- NOTE | 2022-09-18 18:33 | EXP.UTC ---
Discharge Plan Disposition Patient Disposition: Home, Self-Care Condition: Good Prescriptions Prescriptions: New mupirocin 2 % ointment 1 applic topical TID 7 Days Qty: 15 0RF benzonatate [benzonatate] 100 mg capsule 100 mg PO TIDP PRN (Reason: Cough) Qty: 30 0RF methylprednisolone 4 mg Tablets,Dose Pack 4 mg PO DIRECTED Qty: 21 0RF amoxicillin-pot clavulanate 875-125 mg Tablet 1 tab PO Q12H Qty: 20 0RF No Action albuterol sulfate [Proventil HFA] 90 mcg/actuation HFA aerosol inhaler 2 puff inhalation Q6H PRN (Reason: shortness of breath or wheezing) Qty: 8.5 3RF bupropion HCl [Wellbutrin XL] 300 mg tablet extended release 24 hr 300 mg PO DAILY Qty: 30 3RF fenofibrate nanocrystallized [Tricor] 48 mg tablet 48 mg PO DAILY Qty: 30 2RF hydrochlorothiazide 25 mg tablet 25 mg PO DAILY Qty: 90 0RF sulfamethoxazole-trimethoprim [Bactrim DS] 800-160 mg tablet 1 tab PO BID Qty: 30 0RF Dulera 200-5 mcg/actuation HFA aerosol inhaler 2 puff inhalation BID Qty: 13 3RF gabapentin 400 MG capsule 400 mg PO QID oxycodone-acetaminophen 1 EACH tablet 1 - 2 each PO Q6 PRN (Reason: post-op pain) Qty: 27 0RF Referrals Follow up/Referrals: Angi Dyer DO [Primary Care Provider] - See instructions Activity Restrictions/Add. Instructions Additional Instructions/Restrictions: Drink plenty of fluids. Take tylenol or ibuprofen for pain or fever. Take the medications as directed. Follow up with your regular doctor. GO TO THE ER FOR ANY WORSENING SYMPTOMS Clinical Impressions Clinical Impression: Sinusitis, Otitis media, Cutaneous abscess of abdominal wall Instructions Patient Instructions: Sinusitis, Middle Ear Infection, DI for Wound Infection Discharge ED Provider: Fabricio Foley [facility] General Stated complaint: sore throat, , ear ache Mode of Arrival: Ambulatory Source of Information: Patient Limitations: No Limitations Time Seen by Provider: 09/18/22 18:33 Description of Symptoms (Recalled from Triage Doc. by RN): pt reports sore throat x3-4 days, also reports R ear pain. Pt reports drainage from his abd around umbilicus area reports had previous hernia repair approx 1 year ago. Pt denies fevers History of Present Illness Provider Complaint: He reports that he has had a productive cough, chest congestion, sore throat and sinus congestion for the past 4 days. He also has an old hernia repair scar on his abdomen that has had some clear drainage from a very small red area on it. He states that he had this hernia repair over a year ago and he has had drainage like this a couple of times that he had to take antibiotics for. He denies any abdominal pain. He denies fever. Related Data Home Medications Medication Instructions Recorded Confirmed gabapentin 400 mg capsule 400 mg PO QID Pain 10/29/21 08/13/22 Previous Rx's Medication Instructions Recorded oxycodone-acetaminophen 7.5 mg-325 1 - 2 each PO Q6 PRN post-op pain 11/01/21 mg tablet #27 tabs albuterol sulfate 90 mcg/actuation 2 puff inhalation Q6H PRN 08/13/22 aerosol inhaler (Proventil HFA) shortness of breath or wheezing #8.5 grams bupropion HCl 300 mg 24 hr tablet, 300 mg PO DAILY #30 tabs 08/13/22 extended release (Wellbutrin XL) fenofibrate nanocrystallized 48 mg 48 mg PO DAILY #30 tabs 08/13/22 tablet (Tricor) hydrochlorothiazide 25 mg tablet 25 mg PO DAILY #90 tabs 08/13/22 mometasone-formoterol HFA 200 2 puff inhalation BID #13 grams 08/13/22 mcg-5 mcg/actuation aerosol inhaler (Dulera) sulfamethoxazole 800 1 tab PO BID #30 tabs 08/13/22 mg-trimethoprim 160 mg tablet (Bactrim DS) amoxicillin 875 mg-potassium 1 tab PO Q12H #20 tabs 09/18/22 clavulanate 125 mg tablet benzonatate 100 mg capsule 100 mg PO TIDP PRN Cough #30 caps 09/18/22 methylprednisolone 4 mg tablets in 4 mg PO DIRECTED #21 tabs 09/18/22 a dose pack mupirocin 2 % topical ointment 1 a
[2022-09-18 18:44] VITALS: BP 170/119; PULSE 109; RESP 20; TEMP 36.6; O2SAT 96
[2022-09-18 18:45] LABS: UTC Strep Screen (Rapid) Negative (Negative)
== END 2022-09-18 18:40 | disposition home or self-care (01) ==
PROVIDERS: Emergency Provider Nurse Practitioner Family; PCP Family Medicine
DX: J32.9 Chronic sinusitis, unspecified (principal); H66.90 Otitis media, unspecified, unspecified ear; L02.211 Cutaneous abscess of abdominal wall; A49.01 Methicillin susceptible Staphylococcus aureus infection, unspecified site
CPT/HCPCS: 87070; 87077; 87186; 87205; 87880; 99212; 99214; G0463

== ENCOUNTER 2023-03-02 22:44 | Emergency (ER) | payer MEDICAID, SELFPAY ==
[2023-03-02 22:45] VITALS: BP 135/96; PULSE 117; RESP 18; TEMP 36.8; O2SAT 96; BMI 38.2
[2023-03-02 22:50] VITALS: BP 135/99; PULSE 97; O2SAT 95
[2023-03-02 23:10] LABS: Microscopic, Urine URINE MICROSCOPIC (MICROSCOPIC)
--- NOTE | 2023-03-02 23:10 | XR_ITS ---
PROCEDURE INFORMATION: Exam: XR Right Knee Exam date and time: 03/02/2023 11:47 PM Age: 42 years old Clinical indication: Pain; Knee; Right; Additional info: Knee pain, twisting injury TECHNIQUE: Imaging protocol: Radiologic exam of the right knee. Views: 3 views. COMPARISON: No relevant prior studies available. FINDINGS: Bones/joints: No fracture or bone destruction. Small sclerotic nonaggressive appearing lesion in the right lateral femoral condyle measuring 6 mm.. Soft tissues: Normal. IMPRESSION: No acute findings.
--- NOTE | 2023-03-02 23:10 | CT_ITS ---
PROCEDURE INFORMATION: Exam: CT Abdomen And Pelvis With Contrast Exam date and time: 03/02/2023 11:48 PM Age: 42 years old Clinical indication: Abdominal pain; Prior surgery; Surgery date: 6+ months; Patient HX: PT states HX of hernia repair & partial bowel resection 2 years ago. C/O new onset pain near site of surgery; Additional info: Abd pain/emesis. HX hernia repairs w chronic dehis TECHNIQUE: Imaging protocol: Computed tomography of the abdomen and pelvis with contrast. Radiation optimization: All CT scans at this facility use at least one of these dose optimization techniques: automated exposure control; mA and/or kV adjustment per patient size (includes targeted exams where dose is matched to clinical indication); or iterative reconstruction. Contrast material: ISOVUE; Contrast volume: 75 ml; Contrast route: IV; REPORTING DATA: Count of CT and Cardiac NM exams in prior 12 months: This patient has received 0 known CTs and 0 known cardiac nuclear medicine studies in the 12 months prior to the current study. COMPARISON: CT ABDOMEN PELVIS W CON 10/28/2021 10:10 PM FINDINGS: Lungs: Mild patchy opacification right lower lobe axial image 3/8. Liver: There is hepatomegaly with liver measuring 25 cm and fatty infiltration of the liver. There is subtle mild micro nodularity of the liver contour which could indicate early cirrhosis. Gallbladder and bile ducts: Normal. No calcified stones. No ductal dilation. Pancreas: Normal. No ductal dilation. Spleen: Persistent splenomegaly. Adrenal glands: Normal. No mass. Kidneys and ureters: Bilateral renal cysts. There are also indeterminate densities in the kidneys bilaterally and ultrasound recommended to further delineate this finding. These include a 2.4 cm lesion with 42 Hounsfield units right kidney image 3/55, a left renal lesion measuring 2.1 cm with 24 Hounsfield units image 3/55 and a 16.5 Hounsfield 2.4 cm lesion left inferior pole kidney image 3/62. There is a tiny cluster of 1 mm non-obstructing stones left inferior pole kidney Stomach and bowel: Mild diverticulosis involving the distal colon. Retained stool in the colon. Extensive retained stool in the rectum with mild rectal wall thickening which may indicate proctitis and fecal impaction. Appendix: Prior appendectomy. Intraperitoneal space: Unremarkable. No free air. No significant fluid collection. Vasculature: The aorta demonstrates mild atherosclerotic calcification. Lymph nodes: Unremarkable. No enlarged lymph nodes. Urinary bladder: Air in the urinary bladder. Reproductive: Prostate calcifications. Bones/joints: Unremarkable. No acute fracture. Soft tissues: Right paracentral periumbilical hernia containing herniated loops of small bowel. Some of the small bowel may be adhesed to the anterior abdominal wall. Right paracentral surgical scar with marked enhancing soft tissue thickening measuring 5.9 x 4.5 cm. and skin thickening axial image 3 116. Small bowel loops appear to be adhesed to this soft tissue lesion. Other findings: . IMPRESSION: 1. Right paracentral periumbilical hernia containing herniated loops of small bowel. Some of the small bowel may be adhesed to the anterior abdominal wall. 2. Right paracentral surgical scar with marked enhancing soft tissue thickening measuring 5.9 x 4.5 cm. and skin thickening axial image 116. This may represent infection/phlegmon/cellulitis. Clinical correlation recommended. Small bowel loops appear to be adhesed to this soft tissue lesion. 3. Mild diverticulosis involving the distal colon. 4. Extensive retained stool in the rectum with mild rectal wall thickening which may indicate proctitis and fecal impaction. 5. Mild patchy opacification right low
[2023-03-02 23:13] LABS: Appearance,Urine CLEAR (Clear); Bilirubin,Urine Negative (Negative); Blood, Urine TRACE-I (Negative); Color,Urine YELLOW (Yellow); Glucose,Urine (UA) 3+ (Negative); Ketones,Urine Negative (Negative); Leukocyte Esterase,Urine Negative (Negative); Nitrate,Urine POSITIVE (Negative); PH,Urine 5.5 (5.0-8.5); Protein,Urine TRACE (Negative); Specific Gravity, Urine <= 1.005 (1.005-1.030); Urobilinogen,Urine 0.2 EU/dl (0.2)
--- NOTE | 2023-03-02 23:15 | [facility].EDGENADL ---
Discharge Plan Disposition Patient Disposition: Home, Self-Care Condition: Good Prescriptions Prescriptions: New amoxicillin-pot clavulanate [Augmentin] 500-125 mg tablet 1 tab PO TID Qty: 30 0RF ondansetron 4 mg tablet,disintegrating 4 mg PO Q6 PRN (Reason: Nausea And Vomiting) Qty: 30 0RF No Action gabapentin 400 MG capsule 400 mg PO QID mupirocin 2 % ointment 1 applic TP TID oxycodone-acetaminophen 1 EACH tablet 7.5 each PO BID Referrals Follow up/Referrals: Provider,Referral, MD [Primary Care Provider] - See instructions Activity Restrictions/Add. 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 This will require surgery to fix. Please call?[phone] to schedule a clinic appointment with the colorectal surgery team at as soon as possible. Please take antibiotics as prescribed to treat urinary infection. Continue to monitor your abdominal wound. Please call and follow up with your operating surgeon. Your blood sugar was quite high here in the emergency department. This is concerning for diabetes. Please follow-up with your family doctor. Your x-ray was negative for injury to your right knee. You may have a soft tissue injury. Please wear knee brace and follow-up with orthopedic surgery for possible MRI. Clinical Impressions Clinical Impression: Acute UTI, Constipation, Abdominal wall dehiscence, Abdominal hernia, Hyperglycemia Instructions Patient Instructions: DI for Acute Abdominal Pain Discharge ED Provider: Josef Gutierrez General Adult HPI General Chief complaint: Abdominal Pain Stated complaint: abd pain, leg pain Time Seen by Provider: 03/02/23 22:58 Mode of Arrival: Ambulatory Source of Information: Patient Limitations: No Limitations Description of Symptoms (Recalled from ER Triage Doc. by RN): pt c/o abd pain with vomitting x 2 days ago. pt had hernia repair surgery 2 years ago and had celluitis. pt states once he off antibodics the drainage starts. History of Present Illness HPI narrative: 42-year-old male history of obesity and multiple prior abdominal hernia repairs, presents with multiple complaints. Patient reports that he has been having abdominal pain and vomiting for the last several days and has been having trouble staying hydrated. He reports this is different from baseline. Patient reports history of multiple prior abdominal surgeries, most recently 2 years ago. 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 Patient reports that the drainage from his wound is stable from prior.Reports no fever at home.He has not seen his surgeon since approximately 1 month after his surgery. Patient also reports that his urine is foul Smelling and different from normal with intermittent air.. Patient also reports right posterior knee pain after a twisting injury a couple of days ago. Patient still able to bear weight. Related Data Home Medications Medication Instructions Recorded Confirmed gabapentin 400 mg capsule 400 mg PO QID Pain 10/29/21 03/03/23 mupirocin 2 % topical ointment 1 applic TP TID Infection 03/03/23 03/03/23 oxycodone-acetaminophen 7.5 mg-325 7.5 each PO BID Pain 03/03/23 03/03/23 mg tablet Previous Rx's Medication Instructions Recorded amoxicillin 500 mg-potassium 1 tab PO TID #30 tabs 03/03/23 clavulanate 125 mg tablet (Augmentin) ondansetron 4 mg disintegrating 4 mg PO Q6 PRN Nausea And Vomiting 03/03/23 tablet #30 tabs Allergies Allergy/AdvReac Type Severity Reaction Status Date / Time No Known Allergies Allergy Verified 08/13/22 14:14 [facility] Disclaimer: The information contained in this section may have been updated after the patient was seen, as this information can be updated by other users. Medical History Ab
--- NOTE | 2023-03-02 23:15 | PC.NURSE ---
abd wound undressed by md, cleaned and redressed with abd pad.
[2023-03-02 23:18] LABS: Chloride 96 mmol/L (98-107); Potassium 3.7 mmoL/L (3.5-5.1); Sodium 133 mmol/L (136-145)
[2023-03-02 23:20] LABS: Basophils % 0.4 % (0.1-2.0); Eosinophils # 0.3 K/mm3 (0.0-0.4); Eosinophils % 3.1 % (0.1-12.0); Hematocrit 48.4 % (42.0-52.0); Hemoglobin 15.4 g/dL (14.1-18.0); Lymphocytes # 2.8 K/mm3 (0.7-4.5); Lymphocytes % 28.1 % (10-50); Mean Corpuscular HGB Conc 31.9 g/dL (31.8-35.4); Mean Corpuscular Volume 87.6 fl (80-94); Mean Platelet Volume 9.8 fl (7.4-10.4); Monocytes # 0.6 K/mm3 (0.1-1.0); Monocytes % 5.9 % (1.7-9.3); Neutrophils # 6.2 K/mm3 (1.8-7.8); Neutrophils % 62.6 % (37.0-80.0); Platelet Count 225 K/mm3 (142-424); Red Blood Count 5.52 M/mm3 (4.60-6.20); Red Cell Distribution Width 13.9 % (11.5-17.5)
[2023-03-02 23:21] LABS: Alanine Aminotransferase 31 U/L (12-78); Albumin/Globulin Ratio 1.5 (1.1-1.8); Alkaline Phosphatase 118 U/L (38-126); Anion Gap 13.7 mEq/L (5-15); Aspartate Amino Transferase 24 U/L (17-59); Bilirubin,Total 0.5 mg/dl (0.2-1.3); Blood Urea Nitrogen 8 mg/dl (9-20); Carbon Dioxide 27 mmol/L (22.0-30.0); Creatinine Clearance Estimated 350 mL/min (50-200); Estimated Glomerular Filt Rate 148 ml/min (>60); GFR (African American) 179 ML/MIN (>60); Globulin 2.7 g/dL (1.3-3.2); Total Protein,Serum 6.7 g/dl (6.3-8.2)
[2023-03-02 23:22] LABS: Glucose 521 mg/dl (74-100); Lactic Acid 2.1 mmol/L (0.7-2.1)
[2023-03-02 23:28] LABS: Bacteria,Urine 4+ /lpf; RBC,Urine Occasional #/hpf (0-3); Squamous Epithelial Cell,Urine Occasional #/hpf (0-5)
[2023-03-03] VITALS (11 sets, daily range): BP systolic 105–136; BP diastolic 70–83; PULSE 63–107; RESP 16; TEMP 36.8; O2SAT 93–95
[2023-03-03 00:01] LABS: Acetone, Serum (Rapid) None Detected (None Detect)
--- NOTE | 2023-03-03 00:05 | PC.NURSE ---
PT advised he was still in pain. notified.
[2023-03-03 00:11] LABS: Lipase 71 U/L (23-300)
--- NOTE | 2023-03-03 01:41 | PC.NURSE ---
Pt advised he was in pain. MD made aware.
--- NOTE | 2023-03-03 01:41 | PC.NURSE ---
Dr. Coy at to update pt on results
--- NOTE | 2023-03-03 02:00 | PC.NURSE ---
on phone with dr pelaez at this time
--- NOTE | 2023-03-03 02:09 | PC.NURSE ---
Spoke with Marta and Elizabeth, advised they would give a call back when the provider is available.
--- NOTE | 2023-03-03 02:28 | PC.NURSE ---
Dr. Coy at [facility] to update pt
[2023-03-03 03:11] LABS: Reflex Lactic Add Lactic Reflex
--- NOTE | 2023-03-03 03:29 | PC.NURSE ---
Dr. Coy advised he did not want the repeat lactic
--- NOTE | 2023-03-03 04:30 | PC.NURSE ---
Rounded on pt. No needs voiced at this time. Call light remains within reach.
== END 2023-03-03 04:49 | disposition home or self-care (01) ==
PROVIDERS: Emergency Medicine; Emergency Provider Emergency Medicine
DX: R10.9 Unspecified abdominal pain (principal); R11.10 Vomiting, unspecified; T81.31XA Disruption of external operation (surgical) wound, not elsewhere classified, initial encounter; N39.0 Urinary tract infection, site not specified; K59.00 Constipation, unspecified; E78.5 Hyperlipidemia, unspecified; F43.10 Post-traumatic stress disorder, unspecified; F17.210 Nicotine dependence, cigarettes, uncomplicated; E11.65 Type 2 diabetes mellitus with hyperglycemia; J44.9 Chronic obstructive pulmonary disease, unspecified; I10 Essential (primary) hypertension; N32.1 Vesicointestinal fistula
CPT/HCPCS: 73562; 74177; 80053; 81001; 82009; 83605; 83690; 85025; 87040; 87086; 87088; 87186; 96361; 96365; 96366; 96375; 96376; 99285; J2405; J2543; J3370; Q9967